=== PATIENT | male | born 1945 | race Caucasian/White ===

== ENCOUNTER 2016-11-26 16:03 | Outpatient (CLI) | payer OTHER ==
[2016-11-26 16:55] LABS: BASOPHILS # (AUTO) 0.1 K/uL (0-0.2); EOSINOPHILS # (AUTO) 0.4 K/ul (0.0-0.7); HEMATOCRIT 46.6 % (42.0-52.0); IMMATURE GRANULOCYTE % (AUTO) 0.5 % (0.0-5.0); LYMPHOCYTES # (AUTO) 1.2 K/uL (0.60-3.4); LYMPHOCYTES % (AUTO) 20.8 (10.0-50.0); MEAN CORPUSCULAR HGB CONC 34.3 (31.8-35.4); MEAN CORPUSCULAR VOLUME 87.4 fl (80.0-94.0); MONOCYTES # (AUTO) 0.7 K/uL (0.4-2.0); MONOCYTES % (AUTO) 11.1 (0-10); NEUTROPHILS # (AUTO) 3.6 K/ul (2.0-6.9); NEUTROPHILS % (AUTO) 59.6; PLATELET COUNT 236 10^3/uL (140-440); RED BLOOD COUNT 5.33 10^6/ul (4.70-6.10); WHITE BLOOD COUNT 5.97 K/ul (4.2-10.2)
[2016-11-26 17:03] LABS: BILIRUBIN,URINE Negative (NEGATIVE); KETONES,URINE Negative (NEGATIVE); LEUKOCYTE ESTERASE ,URINE Negative (NEGATIVE); NITRITE,URINE Negative (NEGATIVE); PH,URINE 5.5 (5-9); PROTEIN,URINE Negative (NEGATIVE); URINE, BLOOD Negative (NEGATIVE)
[2016-11-26 17:05] LABS: ADD URINE MICROSCOPIC NO
[2016-11-26 17:12] LABS: ALBUMIN 4.1 g/dL (3.4-5.0); ALBUMIN/GLOBULIN RATIO 1.28; ANION GAP 14.2; BILIRUBIN,TOTAL 0.7 mg/dL (0.00-1.20); BUN/CREATININE RATIO 21.9; CALCIUM 9.4 mg/dL (8.2-10.2); CHOL/HDL RATIO 4.4 (4.5-6.4); CREATININE 1.05 mg/dL (0.60-1.10); POTASSIUM 4.2 mmol/L (3.5-5.1); TOTAL PROTEIN 7.3 g/dL (5.8-8.1)
== END 2016-11-26 16:04 | disposition home or self-care (01) ==
LOC: LAB 16:03
PROVIDERS: ATTEND General Practice
DX: Z00.00 Encounter for general adult medical examination without abnormal findings (principal); E78.5 Hyperlipidemia, unspecified; I25.10 Atherosclerotic heart disease of native coronary artery without angina pectoris; I49.9 Cardiac arrhythmia, unspecified; I63.9 Cerebral infarction, unspecified; Z79.899 Other long term (current) drug therapy; Z12.5 Encounter for screening for malignant neoplasm of prostate
CPT/HCPCS: 36415; 80053; 80061; 81001; 85025

== ENCOUNTER 2017-05-02 08:34 | Outpatient (CLI) ==
[2017-05-02 08:54] LABS: BASOPHILS # (AUTO) 0.1 K/uL (0-0.2); BASOPHILS % (AUTO) 1.5 % (0.0-3.0); EOSINOPHILS # (AUTO) 0.5 K/ul (0.0-0.7); EOSINOPHILS % (AUTO) 11.7 % (0.0-7.0); HEMATOCRIT 46.4 % (42.0-52.0); HEMOGLOBIN 15.6 g/dl (14.0-18.0); IMMATURE GRANULOCYTE % (AUTO) 0.4 % (0.0-5.0); LYMPHOCYTES # (AUTO) 1.1 K/uL (0.60-3.4); LYMPHOCYTES % (AUTO) 24.5 (10.0-50.0); MEAN CORPUSCULAR HEMOGLOBIN 29.5 pg (27.0-31.0); MEAN CORPUSCULAR HGB CONC 33.6 (31.8-35.4); MEAN CORPUSCULAR VOLUME 87.7 fl (80.0-94.0); MONOCYTES # (AUTO) 0.5 K/uL (0.4-2.0); MONOCYTES % (AUTO) 11.5 (0-10); NEUTROPHILS # (AUTO) 2.3 K/ul (2.0-6.9); NEUTROPHILS % (AUTO) 50.4; PLATELET COUNT 199 10^3/uL (140-440); RED BLOOD COUNT 5.29 10^6/ul (4.70-6.10); WHITE BLOOD COUNT 4.53 K/ul (4.2-10.2)
[2017-05-02 09:32] LABS: ALBUMIN 3.8 g/dL (3.4-5.0); ALBUMIN/GLOBULIN RATIO 1.27; ANION GAP 12.1; BILIRUBIN,TOTAL 0.7 mg/dL (0.00-1.20); BUN/CREATININE RATIO 16.03; CALCIUM 9.1 mg/dL (8.2-10.2); CREATININE 1.06 mg/dL (0.60-1.10); POTASSIUM 4.1 mmol/L (3.5-5.1); TOTAL PROTEIN 6.8 g/dL (5.8-8.1)
== END 2017-05-02 08:35 | disposition home or self-care (01) ==
LOC: LAB 08:34
PROVIDERS: ATTEND Specialist
DX: Z01.810 Encounter for preprocedural cardiovascular examination (principal); I42.9 Cardiomyopathy, unspecified; Z79.899 Other long term (current) drug therapy
CPT/HCPCS: 36415; 80053; 85025

== ENCOUNTER 2017-08-01 16:30 | Outpatient (CLI) | END 2017-08-01 16:31 | disposition home or self-care (01) | LOC: FCC-LAB 16:30 | PROVIDERS: ATTEND General Practice | DX: R05 Cough (principal) | CPT/HCPCS: 87804 ==

== ENCOUNTER 2017-11-12 10:54 | Outpatient (CLI) | payer OTHER | END 2017-11-12 10:55 | disposition home or self-care (01) | LOC: FCC-LAB 10:54 | PROVIDERS: ATTEND General Practice | DX: I49.9 Cardiac arrhythmia, unspecified (principal); I25.10 Atherosclerotic heart disease of native coronary artery without angina pectoris; E78.5 Hyperlipidemia, unspecified; Z79.899 Other long term (current) drug therapy | CPT/HCPCS: 36415; 80053; 80061; 85025 ==

== ENCOUNTER 2017-11-13 10:21 | Outpatient (CLI) | payer OTHER | END 2017-11-13 10:22 | disposition home or self-care (01) | LOC: FCC-LAB 10:21 | PROVIDERS: ATTEND General Practice | DX: I49.9 Cardiac arrhythmia, unspecified (principal); I25.10 Atherosclerotic heart disease of native coronary artery without angina pectoris; E78.5 Hyperlipidemia, unspecified; Z79.899 Other long term (current) drug therapy | CPT/HCPCS: 81001 ==

== ENCOUNTER 2018-03-30 10:22 | Outpatient (CLI) | payer OTHER | END 2018-03-30 10:23 | disposition home or self-care (01) | LOC: RHC-LAB 10:22 | PROVIDERS: ATTEND General Practice | DX: I25.10 Atherosclerotic heart disease of native coronary artery without angina pectoris (principal); E78.5 Hyperlipidemia, unspecified; I49.9 Cardiac arrhythmia, unspecified; Z79.899 Other long term (current) drug therapy | CPT/HCPCS: 36415; 80053; 80061; 81001; 85025 ==

== ENCOUNTER 2018-04-02 15:28 | Outpatient (CLI) | payer OTHER | END 2018-04-02 15:29 | disposition home or self-care (01) | LOC: RHC-LAB 15:28 | PROVIDERS: ATTEND General Practice | DX: I25.10 Atherosclerotic heart disease of native coronary artery without angina pectoris (principal); E78.5 Hyperlipidemia, unspecified; I49.9 Cardiac arrhythmia, unspecified; Z79.899 Other long term (current) drug therapy | CPT/HCPCS: 81001 ==

== ENCOUNTER 2018-06-26 10:06 | Outpatient (CLI) | END 2018-06-26 10:07 | disposition home or self-care (01) | LOC: LAB 10:06 | PROVIDERS: ATTEND Specialist | DX: Z79.899 Other long term (current) drug therapy (principal) | CPT/HCPCS: 36415; 80048 ==

== ENCOUNTER 2018-08-28 11:35 | Emergency (ER) ==
[2018-08-28 11:49] VITALS: BP 122/87; TEMP 98.2
[2018-08-28 12:24] VITALS: BMI 33.4
--- NOTE | 2018-08-28 12:33 | ED.PDOC ---
General ED Provider: Dr. 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 Time Seen by Physician: 11:50 Mode of Arrival: Wheelchair Information Source: Patient, Family Exam Limitations: No limitations [facility] Nursing and Triage Documentation Reviewed and Agree: Yes Does patient meet sepsis criteria?: No System Inflammatory Response Syndrome: Not Applicable Sepsis Protocol: For patient's 13 years and over: Temp is 96.8 and below OR 101 and greater Pulse >90 BPM Resp >20/minute Acutely Altered Mental Status Are patient's symptoms suggestive of a new infection, such as: -Pneumonia -Skin, Soft Tissue -Endocarditis -UTI -Bone, Joint Infection -Implantable Device -Acute Abdominal Infection -Wound Infection -Meningitis -Blood Stream Catheter Infection -Unknown Cardiovascular Complaint Exam - Chest Pain Complaint/Exam Duration: 1-2 days Symptoms Are: Still present Timing: Constant Length of Chest Pain Episodes: no chest pain Aggravating: Reports: None Alleviating: Reports: None Associated Signs and Symptoms: Reports: Dizziness Related History: Reports: Similar episode History of Healthcare-Acquired Pneumonia: Reports: No AMI/ACS Risk Factors: Reports: Sedentary, Family history Pulmonary Embolism Risk Factors: Reports: None Prior Care for this Complaint: No Recent Stress Test: No Recent Echo/LV Function: No JVD Present: No Subcutaneous Emphysema Present: No Diminshed Breath Sounds: No Bilateral Pulses Present: Yes Unequal Pulses Noted: No Care and Dx Studies Discussed With: Family Quality Indicator For Non-Traumatic Chest Pain/Syncope: EKG Performed Review of Systems - Review Of Systems Constitutional: Reports: No symptoms All Other Systems: Reviewed and Negative Past Medical History - Past Medical History Previously Healthy: Yes Endocrine: Reports: None Cardiovascular: Reports: None Respiratory: Reports: None Hematological: Reports: None Gastrointestinal: Reports: None Genitourinary: Reports: None Neuro/Psych: Reports: None Musculoskeletal: Reports: None Cancer: Reports: None - Surgical History General Surgical History: Reports: None - Family History Family History: Reports: None - Social History Smoking Status: Never smoker Hx Substance Use: No Alcohol Screening: None - Immunizations Tetanus Shot up to Date: Yes Physical Exam - Physical Exam Appearance: Well-appearing Ill-appearing: None Pain Distress: None Eyes: PETTY ENT: Ears normal Neck: Supple Respiratory: Airway patent Cardiovascular: RRR GI/: Soft Musculoskeletal: Normal strength Skin: Warm Neurological: Sensation intact Critical Care Note - Critical Care Note Total Time (mins): 0 Course - Course Hematology/Chemistry: 08/28/18 13:20 Orders, Labs, Meds: Lab Review 08/28/18 13:20 WBC 5.60 RBC 5.02 Hgb 14.9 Hct 44.3 MCV 88.2 MCH 29.7 MCHC 33.6 RDW Coeff of Vitor 13.6 Plt Count 195 Immature Gran % (Auto) 0.2 Neut % (Auto) 49.3 Lymph % (Auto) 25.4 [place] % (Auto) 12.9 H Eos % (Auto) 11.1 H Baso % (Auto) 1.1 Immature Gran # (Auto) 0.0 Neut # (Auto) 2.8 Lymph # (Auto) 1.4 [place] # (Auto) 0.7 Eos # (Auto) 0.6 Baso # (Auto) 0.1 Orders Category Date Time Status CBC W/ AUTO DIFF Stat LAB 08/28/18 13:20 Completed COMPREHENSIVE METABOLIC PANEL Stat LAB 08/28/18 13:[address] HEAD W/O CONTRAST Stat RADS 08/28/18 12:45 Completed LUMBAR SPINE, MIN 4 VIEWS Stat RADS 08/28/18 12:51 Completed Vital Signs: Temp Pulse Resp BP Pulse Ox 08/28/18 11:41 98.2 F 79 16 122/87 94 L SHAYE Risk Score SHAYE Risk Score: Risk Score Odds of by 30D 0 0.1 (0.1-0.2) 1 0.3 (0.2-0.3) 2 0.4 (0.3-0.5) 3 0.7 (0.6-0.9) 4 1.2 (1.0-1.5) 5 2.2 (1.9-2.6) 6 3.0 (2.5-3.6) 7 4.8 (3.8-6.1) Departure - Departure Time of Disposition: 14:05 Disposition: HOME SELF-CARE Discharge Problem: Lumbar and sacral arthritis Instructions: Low Back Strain (ED), Lumbar Radiculopathy (ED) Condition: Good Pt referred to PMD for follow-up: Yes (follow with vascular US r lower extr prn) IPMP verified?: No Allergies/Adverse Reactions: Allergies No Known Allergies Allergy (Unverified 08/28/18 11:37) Home Medications: Ambulatory Orders Aspirin [Aspir 81] 81 mg PO DAILY 02/07/15 Carvedilol [Coreg] 12.5 mg PO BID 02/07/15 Losartan Potassium [Cozaar] 25 mg PO DAILY 08/28/18 Disposition Discussed With: Patient, Family
--- NOTE | 2018-08-28 13:19 | DI ---
EXAM: Five views of the lumbar spine. History: Leg numbness. Findings: Bilateral hip arthroplasty hardware. No acute fracture or subluxation. Severe disc space narrowing at L4-L5 and L5-S1 with endplate sclerosis and osteophyte formation. Moderate disc space narrowing at L3-L4. Moderate to severe facet hypertrophy within the lower lumbar spine. Impression: No acute osseous abnormality of the lumbar spine. Degenerative changes
--- NOTE | 2018-08-28 13:40 | CT ---
EXAM: CT of the head without contrast History: Right leg weakness. Comparison: Head CT 03/19/2010 Technique: Multiplanar CT images through the head were obtained without the administration of IV con trast Findings: Mild mucosal thickening of the paranasal sinuses. Mastoid air cells are clear in general. No acute calvarial abnormalities. Intracranially the ventricular and cisternal spaces are normal in size, shape and configuration for a patient of this age. Stable small old lacunar infarction within the left thalamus. No dominant mas s or midline shift. No hydrocephalous. No acute intracranial hemorrhage or abnormal extraaxial flui d collections Impression: 1. No acute intracranial process. 2. Stable small old lacunar infarction within the left thalamus. 3. Mild sinus disease
== END 2018-08-28 14:17 | disposition home or self-care (01) ==
LOC: ED 11:35
DX: M47.817 Spondylosis without myelopathy or radiculopathy, lumbosacral region (principal); R20.0 Anesthesia of skin; R42 Dizziness and giddiness; Z86.73 Personal history of transient ischemic attack (TIA), and cerebral infarction without residual deficits
CPT/HCPCS: 36415; 80053; 85025; 99283

== ENCOUNTER 2018-10-13 13:38 | Outpatient (CLI) | payer OTHER | END 2018-10-13 13:39 | disposition home or self-care (01) | LOC: RHC-LAB 13:38 | PROVIDERS: ATTEND General Practice | DX: R61 Generalized hyperhidrosis (principal); E78.5 Hyperlipidemia, unspecified; I49.9 Cardiac arrhythmia, unspecified; I25.10 Atherosclerotic heart disease of native coronary artery without angina pectoris; Z79.899 Other long term (current) drug therapy | CPT/HCPCS: 36415; 80053; 80061; 81001; 84403; 84443; 85025 ==

== ENCOUNTER 2023-03-13 09:35 | Inpatient (IN) ==
--- NOTE | 2023-03-13 10:39 | ED.PDOC ---
General ED Provider: Dr. ENZO AVELAR MD Chief Complaint: Urinary Problem Stated Complaint: Patient with a history of previous CVA, pacemaker insertion, hypertension, cardiac arrhythmia and coronary disease complains of frequency and urgency, urinating small amounts of the past 24 hours. Onset of fever this morning, lethargy and weakness. Family states patient does have a chronic cough since his previous stroke. Denies chest pain, diaphoresis, palpitations. Time Seen by Provider: 03/13/23 10:28 Mode of Arrival: Wheelchair Information Source: Patient and Family Primary Care Provider: ALBERTO MASON MD Nursing and Triage Documentation Reviewed and Agree: Yes Review of Systems Review Of Systems Constitutional: Reports Chills and Fever Eyes: Reports No symptoms Ears, Nose, Mouth, Throat: Reports No symptoms Respiratory: Reports Shortness of Breath Cardiac: Reports No symptoms GI: Reports No symptoms : Reports Frequency, Incontinence, Pain and Urgency Musculoskeletal: Reports No symptoms Skin: Reports No symptoms Neurological: Reports Other (Lethargy but answers questions appropriately) Endocrine: Reports No symptoms Hematologic/Lymphatic: Reports No symptoms All Other Systems: Reviewed and Negative [facility] Medical History Hordeolum external H00.019 - Hordeolum externum unspecified eye, unspecified eyelid (ICD-10) Dyslipidemia (10/09/15) E78.5 - Hyperlipidemia, unspecified (ICD-10) [facility] use of drug (11/26/16) Z79.899 - Other shelter (current) drug therapy (ICD-10) Medicare annual wellness visit, subsequent Z00.00 - Encounter for general adult medical examination without abnormal findings (ICD-10) Preoperative clearance Z01.818 - Encounter for other preprocedural examination (ICD-10) Needs flu shot Z23 - Encounter for immunization (ICD-10) Elevated glucose R73.09 - Other abnormal glucose (ICD-10) Cough R05 - Cough (ICD-10) Influenza due to influenza virus, type B J10.1 - Influenza due to other identified influenza virus with other respiratory manifestations (ICD-10) Vitamin D deficiency E55.9 - Vitamin D deficiency, unspecified (ICD-10) Orthostatic hypotension I95.1 - Orthostatic hypotension (ICD-10) Lyme disease A69.20 - Lyme disease, unspecified (ICD-10) Family History Mother No problems noted. FATHER Rheumatoid arthritis Social History Smoking and tobacco status: Never smoker Passive smoking exposure: No Second hand smoke exposure: No Smoking risk assessment performed: No Alcohol intake: never Counseling given: No Counseling provided: none Substance use type: prescription drug Erika/[facility]: LUTHERAN Special erika needs: No Agree to transfusion: Yes Adopted: No Caregiver/support person: No Foster care: No Household members: spouse Housing: house Marital status: M Lives independently: No Number of children: 2 Number of grandchildren: 8 Financial difficulty paying for basics: not very hard service: Yes branch: [employer] shelter: No Current occupational status: retired Current occupational exposures/hazards: No Pets and animals: Yes Do you think of yourself as: straight/heterosexual Current gender identity: male Seatbelt use: always Surgical History History of cataract removal with insertion of prosthetic lens Z98.49 - Cataract extraction status, unspecified eye (ICD-10) Z96.1 - Presence of intraocular lens (ICD-10) History of musculoskeletal system surgery Z98.890 - Other specified postprocedural states (ICD-10) Implantation of cardiac pacemaker Physical Exam Physical Exam Appearance: Reports Ill-appearing Ill-appearing: Moderate Pain Distress: None Eyes: Reports PETTY, EOMI and Conjunctiva clear ENT: Reports Ears normal, Nose normal and Oropharynx normal Neck: Supple Respiratory: Reports Breath sounds clear Cardiovascular: Reports RRR, Pulses normal and Tachycardia GI/: Reports Soft, Nontender, No masses and Bowel sounds normal Musculoskeletal: Reports Normal strength, ROM intact, No edema and No calf tenderness Skin: Reports Warm and Normal color Neurological: Reports Sensation intact and Motor intact Psychiatric: Reports Affect appropriate (Patient appears lethargic but oriented.) and Mood appropriate Interpretation EKG Interpretation Time of EKG #1: 11:06 Rate: Tachy Ectopy: None Martin: NL Interpretation: Sinus tachycardia rate of 101, right bundle branch block, left intrafascicu Radiology Interpretation Radiology Interpretation By: ED Physician Radiology Results: No acute changes Exam Interpreted: CXR Xray Comments: Portable chest x-ray no acute cardiopulmonary process Critical Care Note Critical Care Note Total Critical Care Time (mins): 30 Course Course 03/13/23 10:59 03/13/23 10:59 Orders, Labs, Meds: Lab Review 03/13/23 03/13/23 03/13/23 10:59 11:01 11:56 WBC 5.70 RBC 4.72 Hgb 13.9 L Hct 42.3 MCV 89.6 MCH 29.4 MCHC 32.9 RDW Coeff of Vitor 13.6 Plt Count 162 Immature Gran % (Auto) 0.5 Neut % (Auto) 96.0 H Lymph % (Auto) 2.6 L [place] % (Auto) 0.5 Eos % (Auto) 0.0 Baso % (Auto) 0.4 Neut # (Auto) 5.5 Lymph # (Auto) 0.2 L [place] # (Auto) 0.0 L Eos # (Auto) 0.0 Baso # (Auto) 0.0 Immature Gran # (Auto) 0.0 Hypochromasia 1+ Anisocytosis 1+ PT 10.5 INR 1.01 Puncture Site Rrad Base Excess -0.6 O2 Saturation 97.0 ABG pH 7.50 H ABG pCO2 29.0 L ABG pO2 82.0 L ABG HCO3 22.6 ABG Total CO2 23.5 Alvarez Test + Hemoglobin 1.4 Oxyhemoglobin 93.9 L Carboxyhemoglobin 3.1 H Total Hemoglobin 14.8 O2 Delivery Device Cannula Oxygen Liter Flow 2.00 FiO2 % 28.0 Sodium 136.8 Potassium 3.93 Chloride 106.5 Carbon Dioxide 22.2 Anion Gap 12.03 BUN 24.7 H Creatinine 1.12 H Estimated GFR (MDRD) 63.00 BUN/Creatinine Ratio 22.05 Glucose 110.7 H Lactic Acid 2.75 H Calcium 8.39 L Total Bilirubin 1.29 AST 25.5 ALT 20.8 Alkaline Phosphatase 60.2 Troponin I 0.044 Total Protein 6.30 Albumin 3.69 Globulin 2.61 Albumin/Globulin Ratio 1.41 D-Dimer 4177.99 H Urine Color Urine Clarity Urine pH Ur Specific [place] [employer] Urine Protein Urine Glucose (UA) Urine Ketones Urine Blood Urine Nitrite Urine Bilirubin Urine Urobilinogen Ur Leukocyte Esterase Urine Microscopic RBC Urine Microscopic WBC Ur Squamous Epith Cells Urine Bacteria Influ A Molecular Assay Negative by naat Influ B Molecular Assay Negative by naat SARS CoV-2 RNA Rapid LOGAN Negative 03/13/23 03/13/23 13:00 13:49 WBC RBC Hgb Hct MCV MCH MCHC RDW Coeff of Vitor Plt Count Immature Gran % (Auto) Neut % (Auto) Lymph % (Auto) [place] % (Auto) Eos % (Auto) Baso % (Auto) Neut # (Auto) Lymph # (Auto) [place] # (Auto) Eos # (Auto) Baso # (Auto) Immature Gran # (Auto) Hypochromasia Anisocytosis PT INR Puncture Site Base Excess O2 Saturation ABG pH ABG pCO2 ABG pO2 ABG HCO3 ABG Total CO2 Alvarez Test Hemoglobin Oxyhemoglobin Carboxyhemoglobin Total Hemoglobin O2 Delivery Device Oxygen Liter Flow FiO2 % Sodium Potassium Chloride Carbon Dioxide Anion Gap BUN Creatinine Estimated GFR (MDRD) BUN/Creatinine Ratio Glucose Lactic Acid 2.76 H Calcium Total Bilirubin AST ALT Alkaline Phosphatase Troponin I Total Protein Albumin Globulin Albumin/Globulin Ratio D-Dimer Urine Color Dark yellow Urine Clarity Clear Urine pH 5.5 Ur Specific [place] [employer] 1.020 Urine Protein 1+ H Urine Glucose (UA) Negative Urine Ketones Negative Urine Blood 2+ H Urine Nitrite Positive H Urine Bilirubin Negative Urine Urobilinogen 0.2 Ur Leukocyte Esterase Trace H Urine Microscopic RBC 10-20 Urine Microscopic WBC 5-10 Ur Squamous Epith Cells 2-5 Urine Bacteria 2+ Influ A Molecular Assay Influ B Molecular Assay SARS CoV-2 RNA Rapid LOGAN Orders Category Date Time Status ADMIT PATIENT INPATIENT .TO [facility] (MONITORED BED) ADMISSION 03/13/23 15:19 Active EKG-(ED ONLY) Stat CARDIO 03/13/23 10:39 Completed NPO REMINDER: IMAGING ONCE CARE 03/13/23 12:03 Active TELEMETRY MONITORING TELE CARE 03/13/23 15:20 Active ABG COOX Stat LAB 03/13/23 11:01 Completed BLOOD CULTURE (ED ONLY) Stat LAB 03/13/23 11:06 Received CBC W/ AUTO DIFF Stat LAB 03/13/23 10:59 Completed CMP [COMPREHENSIVE METABOLIC PANEL] Stat LAB 03/13/23 10:59 Completed D-DIMER Stat LAB 03/13/23 10:59 Completed FLU A & B MOLECULAR [FLU A/B MOLECULAR] Stat LAB 03/13/23 11:56 Completed LACTIC ACID Stat LAB 03/13/23 10:59 Completed LACTIC ACID Stat LAB 03/13/23 13:49 Completed PT WITH INR Stat LAB 03/13/23 10:59 Completed RBC MORPHOLOGY Stat LAB 03/13/23 10:59 Completed SARS COV-2 RNA RAPID LOGAN Stat LAB 03/13/23 11:56 Completed TROPONIN I Stat LAB 03/13/23 10:59 Completed URINALYSIS C & S IF INDICATED Stat LAB 03/13/23 13:00 Completed URINE CULTURE Stat LAB 03/13/23 13:00 Received Levofloxacin/D5w [Levaquin 500 mg/100 ml D5w] Meds 03/13/23 11:39 Discontinued 500 mg in 100 ml IV ONCE Sodium Chloride 0.9% [Sodium Chloride] 1,000 ml Meds 03/13/23 10:40 Discontinued IV BOLUS Sodium Chloride 0.9% [Sodium Chloride] 1,000 ml Meds 03/13/23 11:38 Discontinued IV BOLUS Sodium Chloride 0.9% [Sodium Chloride] 500 ml Meds 03/13/23 14:31 Active IV 500 mls/hr CHEST, 1V AP ONLY Stat RADS 03/13/23 10:[address] HEAD W/O CONTRAST Stat RADS 03/13/23 14:07 Completed CTA CHEST PE PROTOCOL Stat RADS 03/13/23 12:03 Completed Medications Generic Name Dose Route Start Last Admin Trade Name Freq PRN Reason Stop Dose Admin Sodium Chloride 500 mls @ 500 mls/hr 03/13/23 14:31 03/13/23 14:45 Sodium Chloride IV 03/13/23 15:30 500 mls/hr .Q1H STA Administration Discontinued Medications Generic Name Dose Route Start Last Admin Trade Name Freq PRN Reason Stop Dose Admin Sodium Chloride 1,000 mls @ 1,000 mls/hr 03/13/23 10:40 03/13/23 11:50 Sodium Chloride IV 03/13/23 11:39 1,000 mls/hr BOLUS STA Administration Sodium Chloride 1,000 mls @ 1,000 mls/hr 03/13/23 11:38 03/13/23 11:49 Sodium Chloride IV 03/13/23 12:37 1,000 mls/hr BOLUS STA Administration Levofloxacin/Dextrose 500 mg in 100 mls @ 100 mls/hr 03/13/23 11:39 03/13/23 11:49 Levaquin 500 Mg/100 Ml D5w IV 03/13/23 12:38 100 mls/hr ONCE ONE Administration Vital Signs: Temp Pulse Resp BP Pulse Ox O2 Flow Rate 03/13/23 15:08 86 18 128/69 95 03/13/23 12:20 98.6 F 03/13/23 10:10 2 03/13/23 09:41 102.2 F H 111 H 32 H 138/88 92 L Discharge Plan Discharge Patient Disposition: ADMITTED INPATIENT Discharge Problem: Acute dehydration, Acute metabolic encephalopathy Urinary tract infection Qualifiers: Urinary tract infection type: site unspecified Hematuria presence: without hematuria Qualified Code(s): N39.0 - Urinary tract infection, site not specified Did you review [place] [employer] for ALL controlled substances?: Not Applicable ED Provider: ENZO AVELAR Physician Progress Note: History obtained from the patient and his family. states complains of passing small amount of urine frequency and urgency since last night with onset of generalized weakness and lethargy. Denies history of headache, blurred vision, chest pain, abdominal pain nausea vomiting diarrhea. Patient arrives emergency via wheelchair and does not recall coming to the emergency room. Has a history of chronic cough denies chest pain abdominal pain nausea vomiting. Initial vital signs temperature 102, pulse-111, respiration 32, saturation 90% on 2 L. patient placed on sepsis protocol administered normal saline 2 L over 2 and half hours And after 2 sets of blood cultures administered Levaquin 500 mg IV piggyback. Laboratory data reviewed CBC normal limits white blood cell count of 5700, CBC is normal. GFR 63, D-dimer is 4177, troponin 0.044 urinalysis, 2+ blood, leukocyte esterase trace, bacteria 2+,-RBCs 10-20, WBCs 5-10. Patient markedly improvement in mental status after IV hydration however he states he does not remember arriving to the emergency room in wheelchair. Portable chest x-ray shows no acute cardiopulmonary process Portable chest x-ray interpretation by myself shows no evidence of acute cardiopulmonary process EKG interpretation by myself sinus tachycardia 101 there is a right bundle branch block, left intrafascicular block noted. There is no ischemic changes noted. There is no ectopy noted. CTA of the chest with intravenous contrast shows no evidence of pulm embolism. Patient mental status much more alert and appropriate. Clinic reassessment the pulse oximetry is 99% on 2 L, pulse of 87. Respirations 22. Temperature is 99 degrees. [] Third liter initiated at a rate of 500/hour The head CT scan without intravenous contrast is consistent with an old lacunar infarct in left thalamus there is no acute hemorrhage mass effect otherwise normal head CT scan [address] Mason on-call for him and this is a 78-year-old male with a history of pacemaker previous hypertension previous stroke in the past follow-up lorazepam and Plavix (he has had some problems urinating frequency urgency small amounts of urine for the past 2 days presented with fever 1 to see was tachycardic and sepsis 2 L of fluid Differential diagnosis: 1) acute metabolic encephalopathy 2) urinary tract infection 3) dehydration
[2023-03-13] MEDS ORDERED: SODIUM CHLORIDE 1,000 ML IV STA ×2 (10:40→11:38)
[2023-03-13 11:06] LABS: ABG O2 HGB 93.9 % (95-100); BEecf -0.6 (-2.0-3.0); COHb 3.1 (0.5-1.5); HCO3 22.6 (21-28); MetHb 1.4 (0-1.5); TCO2 23.5 (19-24); tHb 14.8 g/dl (11.7-17.4)
--- NOTE | 2023-03-13 11:10 | DI ---
EXAM: CHEST ONE-VIEW AP PORTABLE UPRIGHT HISTORY: Dyspnea COMPARISON: 05/31/2020 FINDINGS: Portable view of the chest obtained. The lungs are clear. The cardiac silhouette is normal. Vascular calcifications present in the aorti c arch. Pacing device is present projecting over soft tissues of the left chest. Pleural surfaces a re unremarkable. IMPRESSION: Negative chest. No active cardiopulmonary disease
[2023-03-13 11:11] LABS: BASOPHILS % (AUTO) 0.4 % (0.0-3.0); HEMATOCRIT 42.3 % (42.0-52.0); HEMOGLOBIN 13.9 g/dl (14.0-18.0); IMMATURE GRANULOCYTE % (AUTO) 0.5 % (0.0-5.0); LYMPHOCYTES # (AUTO) 0.2 K/uL (0.60-3.4); LYMPHOCYTES % (AUTO) 2.6 (10.0-50.0); MEAN CORPUSCULAR HEMOGLOBIN 29.4 pg (27.0-31.0); MEAN CORPUSCULAR HGB CONC 32.9 (31.8-35.4); MEAN CORPUSCULAR VOLUME 89.6 fl (80.0-94.0); MONOCYTES % (AUTO) 0.5 (0-10); NEUTROPHILS # (AUTO) 5.5 K/ul (2.0-6.9); PLATELET COUNT 162 10^3/uL (140-440); RDW COEFFICIENT OF VARIATION 13.6 % (11.6-14.8); RED BLOOD COUNT 4.72 10^6/ul (4.70-6.10)
[2023-03-13 11:27] LABS: ALANINE AMINOTRANSFERASE 20.8 U/L (0-50); ALBUMIN 3.69 g/dL (3.5-5.0); ALKALINE PHOSPHATASE 60.2 U/L (56-119); ASPARTATE AMINO TRANSFERASE 25.5 U/L (17-59); BILIRUBIN,TOTAL 1.29 mg/dL (0.2-1.3); BLOOD UREA NITROGEN 24.7 mg/dL (9-20); CALCIUM 8.39 mg/dL (8.4-10.2); CARBON DIOXIDE 22.2 mmol/L (22-30.0); CHLORIDE 106.5 mmol/L (98-107); CREATININE 1.12 mg/dL (0.60-1.10); GLUCOSE 110.7 mg/dL (74-106); POTASSIUM 3.93 mmol/L (3.5-5.1); SODIUM 136.8 mmol/L (134.5-145); TOTAL PROTEIN 6.3 g/dL (6.3-8.2)
[2023-03-13 11:37] LABS: PROTHROMBIN TIME 10.5 SEC (9.3-11.0)
[2023-03-13 11:38] LABS: TROPONIN I 0.044 ng/ml (0.0000-0.120)
[2023-03-13] MEDS ORDERED: LEVAQUIN 500 MG/100 ML D5W 500 MG/100 ML BAG IV ONE (11:39)
[2023-03-13 11:41] LABS: ANISOCYTOSIS 1+ (NOT PRESENT); HYPOCHROMASIA 1+ (NOT PRESENT)
[2023-03-13 12:17] LABS: SARS COV-2 RNA RAPID NAAT NEGATIVE (NEGATIVE)
[2023-03-13 12:20] LABS: MOLECULAR FLU A NEGATIVE BY NAAT (NEGATIVE); MOLECULAR FLU B NEGATIVE BY NAAT (NEGATIVE)
--- NOTE | 2023-03-13 12:58 | CT ---
EXAM: CHEST CTA WITH CONTRAST (PULMONARY ARTERY) HISTORY: Chest pain and shortness of breath. TECHNIQUE: CTA acquisition of the chest from the thoracic inlet to the upper abdomen following IV con trast administration timed to filling of the pulmonary artery. IV Contrast: 100 mL of Omnipaque 350. 3D/MIP/VR images were utilized. CT Dose Reduction Techniques Employed: Yes. COMPARISON: 07/13/2019 FINDINGS: Pulmonary Embolism: - Diagnostic quality: Adequate. - Pulmonary Arteries: No evidence of thromboembolic disease. - Right ventricle/Left ventricle ratio: Normal. Lung Parenchyma and Airways: The central airways are patent. No suspicious mass or consolidation. No suspicious pulmonary nodule. Pleural Space: No significant pleural effusion. No pneumothorax. Mediastinum: The cardiomegaly is noted. No pericardial effusion. A left chest cardiac device is not ed. The great vessels are normal. No significant aortic aneurysm. No enlarged lymph nodes. Bones and Soft Tissues: There is no fracture or lytic lesion. Chest wall soft tissues are unremarkab le. Upper Abdomen: Colonic diverticulosis is identified, without evidence of diverticulitis. IMPRESSION: 1. Normal CT pulmonary angiogram without evidence of pulmonary artery embolism. 2. Cardiomegaly is identified without acute findings. All CT scans are performed using dose optimization techniques as appropriate to the performed exam an d include at least one of the following: Automated exposure control, adjustment of the mA and/or kV according t o size, and the use of iterative reconstruction technique.
[2023-03-13 13:08] LABS: BILIRUBIN,URINE Negative (NEGATIVE); CLARITY,URINE Clear (CLEAR); GLUCOSE, URINE (UA) Negative (NEGATIVE); KETONES,URINE Negative (NEGATIVE); LEUKOCYTE ESTERASE ,URINE Trace (NEGATIVE); NITRITE,URINE Positive (NEGATIVE); PH,URINE 5.5 (5-9); PROTEIN,URINE 1+ (NEGATIVE); URINE, BLOOD 2+ (NEGATIVE); UROBILINOGEN,URINE 0.2 (0.2)
[2023-03-13 13:11] LABS: COLOR,URINE DARK YELLOW (YELLOW)
[2023-03-13 13:13] LABS: BACTERIA,URINE 2+ (NOT PRESENT)
[2023-03-13] MEDS ORDERED: SODIUM CHLORIDE 500 ML IV STA (14:31)
--- NOTE | 2023-03-13 14:55 | CT ---
EXAMINATION: HEAD CT WITHOUT CONTRAST HISTORY: Unsteady gait and lethargy. TECHNIQUE: Noncontrast CT of the brain was performed with images acquired from skull base to vertex. 2-D coronal and sagittal reformatted images were obtained from the axial source images. Contrast Dose: None. CT Dose Reduction Techniques Performed: Yes. COMPARISON: 05/31/2020. FINDINGS: Topogram demonstrates no significant abnormality. Intraparenchymal hemorrhage: None. Parenchyma: Normal rajan-white differentiation. No mass effect or midline shift. Chronic: Decreased attenuation of the periventricular white matter consistent with microangiopathic i schemic change. Old lacunar infarct in the left thalamus. Vascular calcifications consistent with a rthrosclerosis. Extra-axial spaces and basal cisterns: Normal. Ventricles: Enlargement of the ventricles and subarachnoid spaces consistent with atrophy. Paranasal sinuses and mastoid air cells: Visualized portions of paranasal sinuses are clear. Mastoid air cells are clear. Orbits: Normal visualized portions. Sella/Skull Base: Normal. Other: Scalp and visualized soft tissues are normal. Calvarium is normal. IMPRESSION: 1. Atrophy. 2. Microangiopathic ischemic change. 3. Atherosclerosis. 4. No intracranial hemorrhage. 5. Old lacunar infarct in the left thalamus. 6. Otherwise unremarkable noncontrast CT scan of the brain. All CT scans are performed using dose optimization techniques as appropriate to the performed exam an d include at least one of the following: Automated exposure control, adjustment of the mA and/or kV according t o size, and the use of iterative reconstruction technique.
[2023-03-13] MEDS ORDERED: LACTATED RINGERS 1,000 ML IV STA (15:28)
--- NOTE | 2023-03-13 15:30 | PCM ---
Date of Service Date Seen by Provider: 03/13/23 Time Seen by Provider: 15:15 Admit Day/Time Admission Date: 03/13/23 Admission Time: 15:19 Reason for Admission Chief Complaint: ACUTE METABOLICENCPHALOPATHY,UTI,DEHYDRATION Hospital Provider Hospital Provider: Fac[facility] Cow[facility]ician Primary Care Physician: ALBERTO MASON MD History of Present Illness History of Present Illness: Patient is an 78 year old male from home with pmhx of CHF, pacemaker, hypertension, and stroke x3 who presented to the ER for fever and trouble urinating since last night. He was up multiple times trying to urinate. Continued to run fever into today. Was confused earlier as well. He couldn't remember coming to the ER. He met sepsis criteria in ER. He was given fluid boluses and levaquin. Labs revealed elevated lactic and UTI. He denies history of UTI. No flank pain or abd pain. He was initially sob as well, cxr negative. D dimer high. CTA negative. At baseline he is an otherwise healthy and very active person. Case Discussed With Case Discussed With: Patient's case was discussed with the ER Physicians, Dr. Elizabeth. [facility] Medical History Hordeolum external H00.019 - Hordeolum externum unspecified eye, unspecified eyelid (ICD-10) Dyslipidemia (10/09/15) E78.5 - Hyperlipidemia, unspecified (ICD-10) long-term use of drug (11/26/16) Z79.899 - Other terminologist (current) drug therapy (ICD-10) Medicare annual wellness visit, subsequent Z00.00 - Encounter for general adult medical examination without abnormal findings (ICD-10) Preoperative clearance Z01.818 - Encounter for other preprocedural examination (ICD-10) Needs flu shot Z23 - Encounter for immunization (ICD-10) Elevated glucose R73.09 - Other abnormal glucose (ICD-10) Cough R05 - Cough (ICD-10) Influenza due to influenza virus, type B J10.1 - Influenza due to other identified influenza virus with other respiratory manifestations (ICD-10) Vitamin D deficiency E55.9 - Vitamin D deficiency, unspecified (ICD-10) Orthostatic hypotension I95.1 - Orthostatic hypotension (ICD-10) Lyme disease A69.20 - Lyme disease, unspecified (ICD-10) Surgical History History of hip replacement Z96.649 - Presence of unspecified artificial hip joint (ICD-10) History of cataract removal with insertion of prosthetic lens Z98.49 - Cataract extraction status, unspecified eye (ICD-10) Z96.1 - Presence of intraocular lens (ICD-10) History of musculoskeletal system surgery Z98.890 - Other specified postprocedural states (ICD-10) Implantation of cardiac pacemaker Family History Mother No problems noted. FATHER Rheumatoid arthritis Social History Smoking and tobacco status: Never smoker Passive smoking exposure: No Second hand smoke exposure: No Smoking risk assessment performed: No Alcohol intake: never Counseling given: No Counseling provided: none Substance use type: prescription drug Erika/latter day: TENRIISM Special erika needs: No Agree to transfusion: Yes Adopted: No Caregiver/support person: No Foster care: No Household members: spouse Housing: house Marital status: M Lives independently: No Number of children: 2 Number of grandchildren: 8 Financial difficulty paying for basics: not very hard service: Yes branch: [employer] correction: No Current occupational status: retired Current occupational exposures/hazards: No Pets and animals: Yes Do you think of yourself as: straight/heterosexual Current gender identity: male Seatbelt use: always Allergies Allergies Allergy/AdvReac Type Severity Reaction Status Date / Time No Known Allergies Allergy Verified 03/13/23 09:39 Current Medications Home Medications clopidogrel 75 mg tablet 75 mg PO QDAY #90 tabs 10/08/21 [Rx Confirmed 03/13/23 Last Taken Unknown] metoprolol succinate 25 mg tablet,extended release 24 hr 25 mg PO QDAY #90 tabs 02/06/22 [Rx Confirmed 03/13/23 Last Taken Unknown] lorazepam 0.5 mg tablet 0.5 mg PO QDAY PRN anxiety 30 days #60 tabs 02/21/23 [Rx Confirmed 03/13/23 Last Taken 03/13/23] terbinafine HCl 250 mg tablet 250 mg PO DAILY 03/13/23 [History Confirmed 03/13/23 Last Taken Unknown] Home Acetaminophen (Acetaminophen 325 Mg Tablet) 650 mg PO Q4H PRN PRN Reason: Mild Pain Clopidogrel Bisulfate (Clopidogrel Bisulfate 75 Mg Tablet) 75 mg PO DAILY [facility] Last Admin: 03/13/23 17:08 Dose: 75 mg Enoxaparin Sodium (Enoxaparin Sodium 40 Mg/0.4 Ml Syr) 40 mg SUBCUT DAILY [facility] CEFTRIAXONE/D5W 1 GM PREMIX (Rocephin 1 Gm/50 Ml D5w) 1 gm in 50 mls @ 75 mls/hr IV DAILY [facility] Stop: 03/16/23 15:29 Last Admin: 03/13/23 16:44 Dose: 75 mls/hr Lactated Ringer's (Lactated Ringers) 1,000 mls @ 75 mls/hr IV .[id number] [facility] VANCOMYCIN/WATER FOR INJ (PEG) (Vancomycin 1.5 Gram/300 Ml Premix) 1.5 gm in 300 mls @ 200 mls/hr IV ONCE ONE Stop: 03/13/23 23:09 Last Admin: 03/13/23 22:13 Dose: 200 mls/hr Lorazepam (Lorazepam 0.5 Mg Tablet) 0.5 mg PO DAILY PRN PRN Reason: ANXIETY Last Admin: 03/13/23 20:36 Dose: 0.5 mg Metoprolol Succinate (Metoprolol Succinate 25 Mg Tab.Er.24h) 25 mg PO DAILY [facility] Last Admin: 03/13/23 17:00 Dose: Not Given Non-Formulary Medication (Terbinafine Hcl) 250 mg PO DAILY [facility] Discontinued Medications Sodium Chloride (Sodium Chloride) 1,000 mls @ 1,000 mls/hr IV BOLUS STA Stop: 03/13/23 11:39 Last Admin: 03/13/23 11:50 Dose: 1,000 mls/hr Sodium Chloride (Sodium Chloride) 1,000 mls @ 1,000 mls/hr IV BOLUS STA Stop: 03/13/23 12:37 Last Admin: 03/13/23 11:49 Dose: 1,000 mls/hr Levofloxacin/Dextrose (Levaquin 500 Mg/100 Ml D5w) 500 mg in 100 mls @ 100 mls/hr IV ONCE ONE Stop: 03/13/23 12:38 Last Admin: 03/13/23 11:49 Dose: 100 mls/hr Sodium Chloride (Sodium Chloride) 500 mls @ 500 mls/hr IV .Q1H STA Stop: 03/13/23 15:30 Last Admin: 03/13/23 14:45 Dose: 500 mls/hr Lactated Ringer's (Lactated Ringers) 1,000 mls @ 75 mls/hr IV .[id number] STA Stop: 03/14/23 04:47 Last Admin: 03/13/23 16:54 Dose: 75 mls/hr Review of Systems Constitutional: Reports Fever, Fatigue, Chills and Weakness Head: Reports Normocephalic and Atraumatic Cardiovascular: Denies Chest pain, Chest Pressure or Edema Respiratory: Reports Shortness of air; Denies Cough Gastrointestinal: Denies Nausea, Vomiting, Diarrhea, Constipation or Abdominal pain Genitourinary: Reports Dysuria and Frequency Dermatologic: Denies Rashes Neurological: Reports Weakness and Other (+confusion, improved with fluids ) Physical examination Most Recent Vital Signs: Most Recent Vital Signs Temperature 98.6 F 03/13/23 12:20 Temperature Source Oral 03/13/23 12:20 Pulse Rate 86 03/13/23 15:08 Respiratory Rate 18 03/13/23 15:08 Blood Pressure 128/69 03/13/23 15:08 O2 Sat by Pulse Oximetry 95 03/13/23 15:08 Oxygen Flow Rate 2 03/13/23 10:10 Height 6 ft 2 in 03/13/23 09:41 Weight 220 lb 03/13/23 09:41 Appearance: Positive No Apparent Distress, Alert and Oriented x3 and Ill- Appearing Skin: Positive [place], Warm and Good Turgor; Negative Rashes HEENT: Positive Normocephalic and Atraumatic Neck: Positive Supple and Non-Tender Thyroid Chest/Lungs: Positive Clear to Auscultation Bilaterally; Negative Rales, Rhonci or Wheezes Heart: Positive RRR GI/: Positive Soft, Nontender, Bowel Sounds Normal and No Distention Extremities: Negative Edema Neurological: Positive Cranial Nerves Intact, Alert and Oriented Psychiatric: Positive Oriented x4, Appropriate Mood, Appropriate Affect and Other (+was confused initially but improved with fluids/abx) Labs This Visit Labs This Visit: Labs This Visit 03/13/23 03/13/23 03/13/23 10:59 11:01 11:56 WBC 5.70 RBC 4.72 Hgb 13.9 L Hct 42.3 MCV 89.6 MCH 29.4 MCHC 32.9 RDW Coeff of Vitor 13.6 Plt Count 162 Immature Gran % (Auto) 0.5 Neut % (Auto) 96.0 H Lymph % (Auto) 2.6 L Dawes % (Auto) 0.5 Eos % (Auto) 0.0 Baso % (Auto) 0.4 Neut # (Auto) 5.5 Lymph # (Auto) 0.2 L Dawes # (Auto) 0.0 L Eos # (Auto) 0.0 Baso # (Auto) 0.0 Immature Gran # (Auto) 0.0 Hypochromasia 1+ Anisocytosis 1+ PT 10.5 INR 1.01 Puncture Site Rrad Base Excess -0.6 O2 Saturation 97.0 ABG pH 7.50 H ABG pCO2 29.0 L ABG pO2 82.0 L ABG HCO3 22.6 ABG Total CO2 23.5 Alvarez Test + Hemoglobin 1.4 Oxyhemoglobin 93.9 L Carboxyhemoglobin 3.1 H Total Hemoglobin 14.8 O2 Delivery Device Cannula Oxygen Liter Flow 2.00 FiO2 % 28.0 Sodium 136.8 Potassium 3.93 Chloride 106.5 Carbon Dioxide 22.2 Anion Gap 12.03 BUN 24.7 H Creatinine 1.12 H Estimated GFR (MDRD) 63.00 BUN/Creatinine Ratio 22.05 Glucose 110.7 H Lactic Acid 2.75 H Calcium 8.39 L Total Bilirubin 1.29 AST 25.5 ALT 20.8 Alkaline Phosphatase 60.2 Troponin I 0.044 Total Protein 6.30 Albumin 3.69 Globulin 2.61 Albumin/Globulin Ratio 1.41 D-Dimer 4177.99 H Urine Color Urine Clarity Urine pH Ur Specific [place] Urine Protein Urine Glucose (UA) Urine Ketones Urine Blood Urine Nitrite Urine Bilirubin Urine Urobilinogen Ur Leukocyte Esterase Urine Microscopic RBC Urine Microscopic WBC Ur Squamous Epith Cells Urine Bacteria Influ A Molecular Assay Negative by naat Influ B Molecular Assay Negative by naat SARS CoV-2 RNA Rapid LOGAN Negative 03/13/23 03/13/23 13:00 13:49 WBC RBC Hgb Hct MCV MCH MCHC RDW Coeff of Vitor Plt Count Immature Gran % (Auto) Neut % (Auto) Lymph % (Auto) Dawes % (Auto) Eos % (Auto) Baso % (Auto) Neut # (Auto) Lymph # (Auto) Dawes # (Auto) Eos # (Auto) Baso # (Auto) Immature Gran # (Auto) Hypochromasia Anisocytosis PT INR Puncture Site Base Excess O2 Saturation ABG pH ABG pCO2 ABG pO2 ABG HCO3 ABG Total CO2 Alvarez Test Hemoglobin Oxyhemoglobin Carboxyhemoglobin Total Hemoglobin O2 Delivery Device Oxygen Liter Flow FiO2 % Sodium Potassium Chloride Carbon Dioxide Anion Gap BUN Creatinine Estimated GFR (MDRD) BUN/Creatinine Ratio Glucose Lactic Acid 2.76 H Calcium Total Bilirubin AST ALT Alkaline Phosphatase Troponin I Total Protein Albumin Globulin Albumin/Globulin Ratio D-Dimer Urine Color Dark yellow Urine Clarity Clear Urine pH 5.5 Ur Specific [place] 1.020 Urine Protein 1+ H Urine Glucose (UA) Negative Urine Ketones Negative Urine Blood 2+ H Urine Nitrite Positive H Urine Bilirubin Negative Urine Urobilinogen 0.2 Ur Leukocyte Esterase Trace H Urine Microscopic RBC 10-20 Urine Microscopic WBC 5-10 Ur Squamous Epith Cells 2-5 Urine Bacteria 2+ Influ A Molecular Assay Influ B Molecular Assay SARS CoV-2 RNA Rapid LOGAN Imaging Imaging: EXAM: CHEST CTA WITH CONTRAST (PULMONARY ARTERY HISTORY: Chest pain and shortness of breath. TECHNIQUE: CTA acquisition of the chest from the thoracic inlet to the upper abdomen following IV contrast administration timed to filling of the pulmonary artery. IV Contrast: 100 mL of Omnipaque 350. 3D/MIP/VR images were utilized. CT Dose Reduction Techniques Employed: Yes. COMPARISON: 07/13/2019 FINDINGS: Pulmonary Embolism: - Diagnostic quality: Adequate. - Pulmonary Arteries: No evidence of thromboembolic disease. - Right ventricle/Left ventricle ratio: Normal. Lung Parenchyma and Airways: The central airways are patent. No suspicious mass or consolidation. No suspicious pulmonary nodule. Pleural Space: No significant pleural effusion. No pneumothorax. Mediastinum: The cardiomegaly is noted. No pericardial effusion. A left chest cardiac device is noted. The great vessels are normal. No significant aortic aneurysm. No enlarged lymph nodes. Bones and Soft Tissues: There is no fracture or lytic lesion. Chest wall soft tissues are unremarkable. Upper Abdomen: Colonic diverticulosis is identified, without evidence of diverticulitis. IMPRESSION: 1. Normal CT pulmonary angiogram without evidence of pulmonary artery embolism. 2. Cardiomegaly is identified without acute findings. EXAMINATION: HEAD CT WITHOUT CONTRAST HISTORY: Unsteady gait and lethargy. TECHNIQUE: Noncontrast CT of the brain was performed with images acquired from skull base to vertex. 2-D coronal and sagittal reformatted images were obtained from the axial source images. Contrast Dose: None. CT Dose Reduction Techniques Performed: Yes. COMPARISON: 05/31/2020. FINDINGS: Topogram demonstrates no significant abnormality. Intraparenchymal hemorrhage: None. Parenchyma: Normal rajan-white differentiation. No mass effect or midline shift. Chronic: Decreased attenuation of the periventricular white matter consistent with microangiopathic ischemic change. Old lacunar infarct in the left thalamus. Vascular calcifications consistent with arthrosclerosis. Extra-axial spaces and basal cisterns: Normal. Ventricles: Enlargement of the ventricles and subarachnoid spaces consistent with atrophy. Paranasal sinuses and mastoid air cells: Visualized portions of paranasal sinuses are clear. Mastoid air cells are clear. Orbits: Normal visualized portions. Sella/Skull Base: Normal. Other: Scalp and visualized soft tissues are normal. Calvarium is normal. IMPRESSION: 1. Atrophy. 2. Microangiopathic ischemic change. 3. Atherosclerosis. 4. No intracranial hemorrhage. 5. Old lacunar infarct in the left thalamus. 6. Otherwise unremarkable noncontrast CT scan of the brain. EXAM: CHEST ONE-VIEW AP PORTABLE UPRIGH HISTORY: Dyspnea COMPARISON: 05/31/2020 FINDINGS: Portable view of the chest obtained. The lungs are clear. The cardiac silhouette is normal. Vascular calcifications present in the aortic arch. Pacing device is present projecting over soft tissues of the left chest. Pleural surfaces are unremarkable. IMPRESSION: Negative chest. No active cardiopulmonary disease Review Statement Review Statement: I have independently reviewed and interpreted the labs/EKGs/imaging that were ordered by the ER provider. I have reviewed all outside records that are available currently in our EMR including imaging/notes/labs from previous visits. Plan Plan: 1. Acute metabolic encephalopathy in setting of UTI - Improving with fluids, treatment of fever, etc. Cont fluids, abx. Urine culture pending. Tylenol prn for fever. 2. UTI - Urine culture pending. Start rocephin. 3. Sepsis in setting of UTI - Pt had fever, elevated lactic, tachycardia, elevated RR upon arrival to ER. He's received 2.5L of fluid based on weight. Cont maintenance fluids. Abx. 4. Hypertension - Continue home meds 5. Hx of CVA - Continue plavix 6. CHF, unknown type - Pt reports history of CHF. Does not take any diuretics at baseline. Follows w/ [facility]. No echo on file here. Monitor fluid status closely. DVT Prophylaxis: Lovenox Time Spent: Greater than 80 minutes spent with patient, 50% of the time spent with this patient was devoted to counseling and coordination of care. [facility] minutes spent discussing advance care planning. FULL CODE Admit to: Inpatient Discussed Plan of Care with Dr. Rama Garvey Update: Lab called with positive blood cultures both bottles - gram positive cocci. Vancomycin ordered. Pharmacy to dose thereafter. Will repeat blood cultures tomorrow evening after 24 hrs of vanc. Medications Medication Orders: Medications Ordered Category Date Time Status 1 gm/50 ml IV Daily Keanu Meds 03/13/23 15:30 Ordered Ceftriaxone/D5w 1 gm Premix [Rocephin 1 gm/50 ml D5w] 1 gm in 50 ml IV DAILY Acetaminophen [Tylenol] Meds 03/13/23 15:27 Ordered 650 mg PO Q4H PRN Enoxaparin Sodium [Lovenox] Meds 03/14/23 09:00 Ordered 40 mg SUBCUT DAILY Ringers Lactated Solution [Lactated Ringers] 1,000 ml Meds 03/13/23 15:28 Ordered IV 75 mls/hr Sodium Chloride 0.9% [Sodium Chloride] 500 ml Meds 03/13/23 14:31 Active IV 500 mls/hr
[2023-03-13 16:23] VITALS: BMI 34.4
[2023-03-13] MEDS: ROCEPHIN 1 GM/50 ML D5W 1 GM/50 ML BAG IV SCH (16:44)
[2023-03-13] MEDS: TOPROL XL PO SCH (17:00)
[2023-03-13] MEDS: PLAVIX PO SCH (17:08)
[2023-03-13] MEDS: ATIVAN PO PRN (20:36)
[2023-03-13] MEDS ORDERED: VANCOMYCIN 1.5 GRAM/300 ML PREMIX 1.5 GM/300 ML BAG IV ONE (21:40)
[2023-03-14] MEDS: TYLENOL PO PRN ×2 (05:33→17:15)
[2023-03-14 06:06] LABS: ALANINE AMINOTRANSFERASE 17.9 U/L (0-50); ALBUMIN 3.02 g/dL (3.5-5.0); ALKALINE PHOSPHATASE 42.4 U/L (56-119); ASPARTATE AMINO TRANSFERASE 30.6 U/L (17-59); BILIRUBIN,TOTAL 0.84 mg/dL (0.2-1.3); BLOOD UREA NITROGEN 28.8 mg/dL (9-20); CALCIUM 7.9 mg/dL (8.4-10.2); CARBON DIOXIDE 23.3 mmol/L (22-30.0); CHLORIDE 104.5 mmol/L (98-107); CREATININE 1.12 mg/dL (0.60-1.10); GLUCOSE 111.7 mg/dL (74-106); POTASSIUM 3.91 mmol/L (3.5-5.1); SODIUM 133.2 mmol/L (134.5-145); TOTAL PROTEIN 5.49 g/dL (6.3-8.2)
[2023-03-14 06:51] LABS: HEMATOCRIT 37.2 % (42.0-52.0); HEMOGLOBIN 12.3 g/dl (14.0-18.0); MEAN CORPUSCULAR HGB CONC 33.1 (31.8-35.4); MEAN CORPUSCULAR VOLUME 90.7 fl (80.0-94.0); PLATELET COUNT 117 10^3/uL (140-440); RDW COEFFICIENT OF VARIATION 14.3 % (11.6-14.8)
[2023-03-14 06:56] LABS: ANISOCYTOSIS NOT PRESENT (NOT PRESENT); WHITE BLOOD COUNT 15.05 K/ul (4.2-10.2)
[2023-03-14] MEDS: LACTATED RINGERS 1,000 ML IV SCH ×2 (06:59→15:55)
[2023-03-14] MEDS: ROCEPHIN 1 GM/50 ML D5W 1 GM/50 ML BAG IV SCH (08:10)
[2023-03-14] MEDS: PLAVIX PO SCH (08:10)
[2023-03-14] MEDS: TOPROL XL PO SCH (08:21)
[2023-03-14] MEDS: NON-FORMULARY MEDICATION (Terbinafine Hcl 250 mg tablet) PO SCH (08:22)
[2023-03-14] MEDS ORDERED: LACTATED RINGERS 1,000 ML IV STA (08:28)
[2023-03-14] MEDS ORDERED: LACTATED RINGERS 500 ML IV STA (08:41)
[2023-03-14] MEDS ORDERED: LOVENOX SUBCUT SCH (09:00)
[2023-03-14] MEDS ORDERED: VANCOMYCIN 1 GRAM/200 ML PREMIX 1 GM/200 ML BAG IV SCH (09:00)
--- NOTE | 2023-03-14 09:31 | PCM.PROG ---
Date/Time Seen Date Seen by Provider: 03/14/23 Time Seen by Provider: 08:40 Provider Provider: FACUNDO [facility]OWART [facility]-C, [facility] Chief Complaint Chief Complaint: ACUTE METABOLICENCPHALOPATHY,UTI,DEHYDRATION Subjective Subjective: Patient sitting side of bed eating breakfast. States he feels some better today. No longer having burning with urination but still having trouble with a steady stream. No flank pain or abd pain. Hoping to get oxygen off. Last night lab called reporting gram positive cocci in two blood culture bottles. Vanc was added. Today 4/4 are predominantly gram negative rods. Vanc discontinued. Objective Appearance: Positive Well-appearing, Well-nourished, No Apparent Distress and Alert and Oriented x3 Chest/Lungs: Positive Clear to Auscultation Bilaterally; Negative Rales, Rhonci or Wheezes Heart: Positive RRR GI/: Positive Soft, Nontender, Bowel Sounds Normal and No Distention Neurological: Positive Cranial Nerves Intact, Alert, Oriented and Muscle Strength 5/5 in Upper and Lower Extremities Bilaterally Additional Findings: No edema. Vital Signs Vital Signs: Vital Signs: Last 24 Hours 03/13/23 09:41 03/13/23 10:10 03/13/23 12:20 Temperature 102.2 F H 98.6 F Temperature Source Oral Oral Pulse Rate 111 H Pulse Rate [Apical] Respiratory Rate 32 H Blood Pressure 138/88 Blood Pressure Mean Blood Pressure Right Arm Blood Pressure Location Blood Pressure Position O2 Sat by Pulse Oximetry 92 L Oxygen Delivery Method Oxygen Flow Rate 2 Height 6 ft 2 in Weight 220 lb Telemetry Type Telemetry Monitoring Telemetry Heart Rate Telemetry SPO2 EKG MD Interval EKG QRS Interval Telemetry Strip Reading 03/13/23 15:08 03/13/23 16:02 03/13/23 16:02 Temperature 98.9 F Temperature Source Oral Pulse Rate 86 87 Pulse Rate [Apical] 87 Respiratory Rate 18 20 20 Blood Pressure 128/69 Blood Pressure Mean Blood Pressure Right Arm 97/59 Blood Pressure Location Blood Pressure Position Supine O2 Sat by Pulse Oximetry 95 97 Oxygen Delivery Method Nasal Cannula Nasal Cannula Oxygen Flow Rate 2 2 Height 6 ft Weight 254 lb 6.4 oz Telemetry Type Telemetry Monitoring Telemetry Heart Rate Telemetry SPO2 EKG MD Interval EKG QRS Interval Telemetry Strip Reading 03/13/23 17:08 03/13/23 17:29 03/13/23 19:00 Temperature 98.9 F Temperature Source Oral Pulse Rate 87 Pulse Rate [Apical] Respiratory Rate 20 Blood Pressure 97/59 L Blood Pressure Mean 71 Blood Pressure Right Arm Blood Pressure Location Right Arm Blood Pressure Position Sitting O2 Sat by Pulse Oximetry 97 Oxygen Delivery Method Nasal Cannula Oxygen Flow Rate 2 Height Weight Telemetry Type Remote Telemetry Remote Telemetry Telemetry Monitoring Started Continues Telemetry Heart Rate 84 82 Telemetry SPO2 98 96 EKG MD Interval 0.18 0.13 EKG QRS Interval 0.12 H 0.07 Telemetry Strip Reading SR WITH BBB SR 03/13/23 20:00 03/13/23 21:46 03/14/23 01:00 Temperature 98.6 F Temperature Source Oral Pulse Rate 92 Pulse Rate [Apical] Respiratory Rate 19 Blood Pressure 102/59 L Blood Pressure Mean 73 Blood Pressure Right Arm Blood Pressure Location Left Arm Blood Pressure Position Supine O2 Sat by Pulse Oximetry 92 L Oxygen Delivery Method Nasal Cannula Nasal Cannula Oxygen Flow Rate 2 Height Weight Telemetry Type Remote Telemetry Telemetry Monitoring Continues Telemetry Heart Rate 73 Telemetry SPO2 99 EKG MD Interval 0.14 EKG QRS Interval 0.07 Telemetry Strip Reading SR 03/14/23 02:00 03/14/23 05:25 03/14/23 06:26 Temperature 97.3 F L 100.2 F 99.2 F Temperature Source Temporal Artery Scan Oral Oral Pulse Rate 90 75 75 Pulse Rate [Apical] Respiratory Rate 20 16 16 Blood Pressure 102/64 82/42 L 95/59 L Blood Pressure Mean 76 55 71 Blood Pressure Right Arm Blood Pressure Location Left Arm Right Arm Right Arm Blood Pressure Position Supine Supine Supine O2 Sat by Pulse Oximetry 99 95 95 Oxygen Delivery Method Nasal Cannula Nasal Cannula Nasal Cannula Oxygen Flow Rate 2 2 2 Height Weight Telemetry Type Telemetry Monitoring Telemetry Heart Rate Telemetry SPO2 EKG MD Interval EKG QRS Interval Telemetry Strip Reading 03/14/23 07:00 03/14/23 08:00 Temperature Temperature Source Pulse Rate Pulse Rate [Apical] 80 Respiratory Rate 18 Blood Pressure Blood Pressure Mean Blood Pressure Right Arm Blood Pressure Location Blood Pressure Position O2 Sat by Pulse Oximetry Oxygen Delivery Method Nasal Cannula Oxygen Flow Rate 2 Height Weight Telemetry Type Remote Telemetry Telemetry Monitoring Continues Telemetry Heart Rate 73 Telemetry SPO2 EKG MD Interval 0.20 EKG QRS Interval 0.12 H Telemetry Strip Reading SR WITH BBB Lab Results Lab Results: Lab Results: Last Hours 03/14/23 03/13/23 03/13/23 05:41 16:00 13:49 WBC 15.05 H D RBC 4.10 L Hgb 12.3 L Hct 37.2 L MCV 90.7 MCH 30.0 MCHC 33.1 RDW Coeff of Vitor 14.3 Plt Count 117 L Immature Gran % (Auto) Neut % (Auto) Lymph % (Auto) Elbert % (Auto) Eos % (Auto) Baso % (Auto) Neut # (Auto) Lymph # (Auto) [place] # (Auto) Eos # (Auto) Baso # (Auto) Immature Gran # (Auto) Neutrophils % (Manual) 71.0 Band Neutrophils % 19.0 H Lymphocytes % (Manual) 2.0 L Monocytes % (Manual) 7.0 Eosinophils % (Manual) 1.0 Hypochromasia Anisocytosis Not present PT INR Puncture Site Base Excess O2 Saturation ABG pH ABG pCO2 ABG pO2 ABG HCO3 ABG Total CO2 Alvarez Test Hemoglobin Oxyhemoglobin Carboxyhemoglobin Total Hemoglobin O2 Delivery Device Oxygen Liter Flow FiO2 % Sodium 133.2 L Potassium 3.91 Chloride 104.5 Carbon Dioxide 23.3 Anion Gap 9.31 BUN 28.8 H Creatinine 1.12 H Estimated GFR (MDRD) 63.00 BUN/Creatinine Ratio 25.71 Glucose 111.7 H Lactic Acid 2.69 H 2.76 H Calcium 7.90 L Total Bilirubin 0.84 AST 30.6 ALT 17.9 Alkaline Phosphatase 42.4 L Troponin I Total Protein 5.49 L Albumin 3.02 L Globulin 2.47 Albumin/Globulin Ratio 1.22 D-Dimer Urine Color Urine Clarity Urine pH Ur Specific [place] Urine Protein Urine Glucose (UA) Urine Ketones Urine Blood Urine Nitrite Urine Bilirubin Urine Urobilinogen Ur Leukocyte Esterase Urine Microscopic RBC Urine Microscopic WBC Ur Squamous Epith Cells Urine Bacteria Influ A Molecular Assay Influ B Molecular Assay SARS CoV-2 RNA Rapid LOGAN 03/13/23 03/13/23 03/13/23 13:00 11:56 11:01 WBC RBC Hgb Hct MCV MCH MCHC RDW Coeff of Vitor Plt Count Immature Gran % (Auto) Neut % (Auto) Lymph % (Auto) [place] % (Auto) Eos % (Auto) Baso % (Auto) Neut # (Auto) Lymph # (Auto) [place] # (Auto) Eos # (Auto) Baso # (Auto) Immature Gran # (Auto) Neutrophils % (Manual) Band Neutrophils % Lymphocytes % (Manual) Monocytes % (Manual) Eosinophils % (Manual) Hypochromasia Anisocytosis PT INR Puncture Site Rrad Base Excess -0.6 O2 Saturation 97.0 ABG pH 7.50 H ABG pCO2 29.0 L ABG pO2 82.0 L ABG HCO3 22.6 ABG Total CO2 23.5 Alvarez Test + Hemoglobin 1.4 Oxyhemoglobin 93.9 L Carboxyhemoglobin 3.1 H Total Hemoglobin 14.8 O2 Delivery Device Cannula Oxygen Liter Flow 2.00 FiO2 % 28.0 Sodium Potassium Chloride Carbon Dioxide Anion Gap BUN Creatinine Estimated GFR (MDRD) BUN/Creatinine Ratio Glucose Lactic Acid Calcium Total Bilirubin AST ALT Alkaline Phosphatase Troponin I Total Protein Albumin Globulin Albumin/Globulin Ratio D-Dimer Urine Color Dark yellow Urine Clarity Clear Urine pH 5.5 Ur Specific [place] 1.020 Urine Protein 1+ H Urine Glucose (UA) Negative Urine Ketones Negative Urine Blood 2+ H Urine Nitrite Positive H Urine Bilirubin Negative Urine Urobilinogen 0.2 Ur Leukocyte Esterase Trace H Urine Microscopic RBC 10-20 Urine Microscopic WBC 5-10 Ur Squamous Epith Cells 2-5 Urine Bacteria 2+ Influ A Molecular Assay Negative by naat Influ B Molecular Assay Negative by naat SARS CoV-2 RNA Rapid LOGAN Negative 03/13/23 10:59 WBC 5.70 RBC 4.72 Hgb 13.9 L Hct 42.3 MCV 89.6 MCH 29.4 MCHC 32.9 RDW Coeff of Vitor 13.6 Plt Count 162 Immature Gran % (Auto) 0.5 Neut % (Auto) 96.0 H Lymph % (Auto) 2.6 L [place]bert % (Auto) 0.5 Eos % (Auto) 0.0 Baso % (Auto) 0.4 Neut # (Auto) 5.5 Lymph # (Auto) 0.2 L [place] # (Auto) 0.0 L Eos # (Auto) 0.0 Baso # (Auto) 0.0 Immature Gran # (Auto) 0.0 Neutrophils % (Manual) Band Neutrophils % Lymphocytes % (Manual) Monocytes % (Manual) Eosinophils % (Manual) Hypochromasia 1+ Anisocytosis 1+ PT 10.5 INR 1.01 Puncture Site Base Excess O2 Saturation ABG pH ABG pCO2 ABG pO2 ABG HCO3 ABG Total CO2 Alvarez Test Hemoglobin Oxyhemoglobin Carboxyhemoglobin Total Hemoglobin O2 Delivery Device Oxygen Liter Flow FiO2 % Sodium 136.8 Potassium 3.93 Chloride 106.5 Carbon Dioxide 22.2 Anion Gap 12.03 BUN 24.7 H Creatinine 1.12 H Estimated GFR (MDRD) 63.00 BUN/Creatinine Ratio 22.05 Glucose 110.7 H Lactic Acid 2.75 H Calcium 8.39 L Total Bilirubin 1.29 AST 25.5 ALT 20.8 Alkaline Phosphatase 60.2 Troponin I 0.044 Total Protein 6.30 Albumin 3.69 Globulin 2.61 Albumin/Globulin Ratio 1.41 D-Dimer 4177.99 H Urine Color Urine Clarity Urine pH Ur Specific [place] Urine Protein Urine Glucose (UA) Urine Ketones Urine Blood Urine Nitrite Urine Bilirubin Urine Urobilinogen Ur Leukocyte Esterase Urine Microscopic RBC Urine Microscopic WBC Ur Squamous Epith Cells Urine Bacteria Influ A Molecular Assay Influ B Molecular Assay SARS CoV-2 RNA Rapid LOGAN Additional Comments Additional Comments: I have independently reviewed and interpreted the labs/EKGs/imaging ordered during this hospital stay. I have reviewed outside records that are available in our EMR that pertain to medical stay including imaging/notes/labs from previous visits. Active Medications Active Medications: Medications Generic Name Dose Route Start Last Admin Trade Name Freq PRN Reason Stop Dose Admin Acetaminophen 650 mg 03/13/23 15:27 03/14/23 05:33 Acetaminophen 325 Mg Tablet PO 650 mg Q4H PRN Administration Mild Pain Clopidogrel Bisulfate 75 mg 03/13/23 17:00 03/14/23 08:10 Clopidogrel Bisulfate 75 Mg Tablet PO 75 mg DAILY MARGIE Administration Enoxaparin Sodium 40 mg 03/14/23 09:00 03/14/23 08:11 Enoxaparin Sodium 40 Mg/0.4 Ml Syr SUBCUT 40 mg DAILY MARGIE Administration CEFTRIAXONE/D5W 1 GM PREMIX 1 gm in 50 mls @ 75 mls/hr 03/13/23 15:30 03/14/23 08:10 Rocephin 1 Gm/50 Ml D5w IV 03/16/23 15:29 75 mls/hr DAILY MARGIE Administration Lactated Ringer's 1,000 mls @ 75 mls/hr 03/14/23 05:30 03/14/23 06:59 Lactated Ringers IV 75 mls/hr .[id number] MARGIE Administration Lactated Ringer's 500 mls @ 500 mls/hr 03/14/23 08:41 03/14/23 09:26 Lactated Ringers IV 03/14/23 09:40 500 mls/hr BOLUS STA Administration Lorazepam 0.5 mg 03/13/23 16:53 03/13/23 20:36 Lorazepam 0.5 Mg Tablet PO 0.5 mg DAILY PRN Administration ANXIETY Metoprolol Succinate 25 mg 03/13/23 17:00 03/14/23 08:21 Metoprolol Succinate 25 Mg Tab.Er.24h PO Not Given DAILY MARGIE Non-Formulary Medication 250 mg 03/14/23 09:00 03/14/23 08:22 Terbinafine Hcl PO Not Given DAILY MARGIE Plan Plan: 1. Bacteremia in setting of UTI with gram negative rods - Stop vanc. Cont rocephin. Trend wbc count and bands. Repeat two sets of cultures tonight. Urine culture also showing gram negative rods. 2. Acute metabolic encephalopathy in setting of UTI - Resolved. Cont fluids, abx. Urine culture pending. Tylenol prn for fever. 3. UTI in setting of gram negative rods - Urine culture pending. Continue rocephin. 4. Sepsis in setting of UTI - Pt had fever, elevated lactic, tachycardia, elevated RR upon arrival to ER. He's received 2.5L of fluid based on weight. Cont maintenance fluids. Abx. 5. Hypertension - Pt actually hypotensive this morning. Hold antihypertensives. Give LR 500 ml bolus. 6. Hx of CVA - Continue plavix 7. CHF, unknown type - Pt reports history of CHF. Does not take any diuretics at baseline. Follows w/ [facility]. No echo on file here. Monitor fluid status closely. Request records from Dr. Mendez office. DVT Prophylaxis: Holding Lovenox due to low platelets today. Dispo: Pt will require at least 2 more nights due to positive blood cultures. Review Statement Review Statement: I have personally discussed and reviewed the patient's visit/currently labs/imaging/decision making with Dr. Garvey, my supervising attending. Greater that 50 minutes spent with patient, 50% of the time spent with this patient was devoted to counseling and coordination of care.
[2023-03-14] MEDS: ATIVAN PO PRN (20:44)
[2023-03-15] MEDS: LACTATED RINGERS 1,000 ML IV SCH ×2 (05:14→10:05)
[2023-03-15 06:10] LABS: BASOPHILS % (AUTO) 0.2 % (0.0-3.0); EOSINOPHILS # (AUTO) 0.2 K/ul (0.0-0.7); EOSINOPHILS % (AUTO) 1.9 % (0.0-7.0); HEMATOCRIT 38.3 % (42.0-52.0); HEMOGLOBIN 12.7 g/dl (14.0-18.0); IMMATURE GRANULOCYTE % (AUTO) 0.3 % (0.0-5.0); LYMPHOCYTES # (AUTO) 0.4 K/uL (0.60-3.4); MEAN CORPUSCULAR HEMOGLOBIN 30.2 pg (27.0-31.0); MEAN CORPUSCULAR HGB CONC 33.2 (31.8-35.4); MONOCYTES # (AUTO) 0.4 K/uL (0.4-2.0); MONOCYTES % (AUTO) 4.5 (0-10); NEUTROPHILS # (AUTO) 8.7 K/ul (2.0-6.9); NEUTROPHILS % (AUTO) 89.1 % (42.2-75.2); PLATELET COUNT 95 10^3/uL (140-440); RDW COEFFICIENT OF VARIATION 13.8 % (11.6-14.8); RED BLOOD COUNT 4.21 10^6/ul (4.70-6.10)
[2023-03-15 06:13] LABS: ALANINE AMINOTRANSFERASE 19.4 U/L (0-50); ALBUMIN 3.13 g/dL (3.5-5.0); ALKALINE PHOSPHATASE 59.3 U/L (56-119); ASPARTATE AMINO TRANSFERASE 29.2 U/L (17-59); BILIRUBIN,TOTAL 0.64 mg/dL (0.2-1.3); BLOOD UREA NITROGEN 21.9 mg/dL (9-20); CALCIUM 8.03 mg/dL (8.4-10.2); CARBON DIOXIDE 24.9 mmol/L (22-30.0); CHLORIDE 106.9 mmol/L (98-107); CREATININE 0.86 mg/dL (0.60-1.10); GLUCOSE 110.2 mg/dL (74-106); POTASSIUM 3.69 mmol/L (3.5-5.1); TOTAL PROTEIN 5.82 g/dL (6.3-8.2)
[2023-03-15] MEDS: TOPROL XL PO SCH (08:53)
[2023-03-15] MEDS: PLAVIX PO SCH (08:53)
[2023-03-15] MEDS: FLORASTOR PO SCH ×2 (08:54→20:50)
[2023-03-15] MEDS: ROCEPHIN 1 GM/50 ML D5W 1 GM/50 ML BAG IV SCH (08:54)
--- NOTE | 2023-03-15 09:54 | PCM.PROG ---
Date/Time Seen Date Seen by Provider: 03/15/23 Time Seen by Provider: 08:30 Provider Provider: FACUNDO COWART PA-C, [facility] Chief Complaint Chief Complaint: ACUTE METABOLICENCPHALOPATHY,UTI,DEHYDRATION Subjective Subjective: Patient feeling some better today but very tired. States he had diarrhea through the night. Florastor added. He's also urinating frequently. He denies dysuria though. Has been requiring 1-2L when asleep. Objective Appearance: Positive No Apparent Distress and Alert and Oriented x3 Chest/Lungs: Positive Clear to Auscultation Bilaterally; Negative Rales, Rhonci or Wheezes Heart: Positive RRR GI/: Positive Soft, Nontender, Bowel Sounds Normal and No Distention Neurological: Positive Cranial Nerves Intact, Alert and Oriented Additional Findings: No edema. Vital Signs Vital Signs: Vital Signs: Last 24 Hours 03/14/23 10:00 03/14/23 10:21 03/14/23 12:54 Temperature 97.7 F Temperature Source Oral Pulse Rate 73 Pulse Rate [Apical] Respiratory Rate 16 Blood Pressure 110/57 L Blood Pressure Mean 74 Blood Pressure Location Right Arm Blood Pressure Position Supine O2 Sat by Pulse Oximetry 95 95 Oxygen Delivery Method Nasal Cannula Nasal Cannula Oxygen Flow Rate 2 2 Telemetry Type Remote Telemetry Telemetry Monitoring Continues Telemetry Heart Rate 96 Telemetry SPO2 95 EKG [place] Interval 0.17 EKG QRS Interval 0.13 H Telemetry Strip Reading NSR with BBB 03/14/23 14:00 03/14/23 14:00 03/14/23 17:13 Temperature 98.8 F 100 F Temperature Source Oral Oral Pulse Rate 86 82 Pulse Rate [Apical] Respiratory Rate 18 24 H Blood Pressure 136/75 117/69 Blood Pressure Mean 95 85 Blood Pressure Location Right Arm Right Arm Blood Pressure Position Supine Supine O2 Sat by Pulse Oximetry 93 L 94 L 97 Oxygen Delivery Method Room Air Room Air Nasal Cannula Oxygen Flow Rate 2 Telemetry Type Telemetry Monitoring Telemetry Heart Rate Telemetry SPO2 EKG IL Interval EKG QRS Interval Telemetry Strip Reading 03/14/23 18:16 03/14/23 19:00 03/14/23 19:57 Temperature 98.7 F Temperature Source Oral Pulse Rate Pulse Rate [Apical] Respiratory Rate Blood Pressure Blood Pressure Mean Blood Pressure Location Blood Pressure Position O2 Sat by Pulse Oximetry 92 L 96 Oxygen Delivery Method Room Air Nasal Cannula Oxygen Flow Rate 2 Telemetry Type Remote Telemetry Telemetry Monitoring Continues Telemetry Heart Rate 80 Telemetry SPO2 96 EKG IL Interval 0.19 EKG QRS Interval 0.14 H Telemetry Strip Reading SR with BBB 03/14/23 20:00 03/14/23 21:39 03/15/23 01:00 Temperature 98.3 F Temperature Source Oral Pulse Rate 82 Pulse Rate [Apical] 80 Respiratory Rate 18 Blood Pressure 93/48 L Blood Pressure Mean 63 Blood Pressure Location Right Arm Blood Pressure Position Supine O2 Sat by Pulse Oximetry 94 L Oxygen Delivery Method Nasal Cannula Nasal Cannula Oxygen Flow Rate 2 2 Telemetry Type Remote Telemetry Telemetry Monitoring Continues Telemetry Heart Rate 72 Telemetry SPO2 98 EKG IL Interval 0.17 EKG QRS Interval 0.14 H Telemetry Strip Reading SR with BBB 03/15/23 01:51 03/15/23 05:13 03/15/23 05:43 Temperature 98.7 F 98.7 F Temperature Source Oral Oral Pulse Rate 84 72 Pulse Rate [Apical] Respiratory Rate 20 20 Blood Pressure 141/83 H 113/60 Blood Pressure Mean 102 77 Blood Pressure Location Right Arm Right Arm Blood Pressure Position Sitting Supine O2 Sat by Pulse Oximetry 94 L 95 Oxygen Delivery Method Nasal Cannula Nasal Cannula Oxygen Flow Rate 2 2 2 Telemetry Type Telemetry Monitoring Telemetry Heart Rate Telemetry SPO2 EKG IL Interval EKG QRS Interval Telemetry Strip Reading 03/15/23 07:00 03/15/23 09:37 Temperature Temperature Source Pulse Rate Pulse Rate [Apical] Respiratory Rate Blood Pressure Blood Pressure Mean Blood Pressure Location Blood Pressure Position O2 Sat by Pulse Oximetry Oxygen Delivery Method Nasal Cannula Oxygen Flow Rate 2 Telemetry Type Remote Telemetry Telemetry Monitoring Continues Telemetry Heart Rate 78 Telemetry SPO2 96 EKG IL Interval 0.15 EKG QRS Interval 0.12 H Telemetry Strip Reading SR w/BBB & PVCs Lab Results Lab Results: Lab Results: Last 24 Hours 03/15/23 05:50 WBC 9.80 D RBC 4.21 L Hgb 12.7 L Hct 38.3 L MCV 91.0 MCH 30.2 MCHC 33.2 RDW Coeff of Vitor 13.8 Plt Count 95 L Immature Gran % (Auto) 0.3 Neut % (Auto) 89.1 H Lymph % (Auto) 4.0 L [place] % (Auto) 4.5 Eos % (Auto) 1.9 Baso % (Auto) 0.2 Neut # (Auto) 8.7 H Lymph # (Auto) 0.4 L [place] # (Auto) 0.4 Eos # (Auto) 0.2 Baso # (Auto) 0.0 Immature Gran # (Auto) 0.0 Sodium 137.0 Potassium 3.69 Chloride 106.9 Carbon Dioxide 24.9 Anion Gap 8.89 BUN 21.9 H Creatinine 0.86 Estimated GFR (MDRD) 86.00 BUN/Creatinine Ratio 25.46 Glucose 110.2 H Calcium 8.03 L Total Bilirubin 0.64 AST 29.2 ALT 19.4 Alkaline Phosphatase 59.3 Total Protein 5.82 L Albumin 3.13 L Globulin 2.69 Albumin/Globulin Ratio 1.16 Additional Comments Additional Comments: I have independently reviewed and interpreted the labs/EKGs/imaging ordered during this hospital stay. I have reviewed outside records that are available in our EMR that pertain to medical stay including imaging/notes/labs from previous visits. Active Medications Active Medications: Medications Generic Name Dose Route Start Last Admin Trade Name Martyq PRN Reason Stop Dose Admin Acetaminophen 650 mg 03/13/23 15:27 03/14/23 17:15 Acetaminophen 325 Mg Tablet PO 650 mg Q4H PRN Administration Mild Pain Clopidogrel Bisulfate 75 mg 03/13/23 17:00 03/15/23 08:53 Clopidogrel Bisulfate 75 Mg Tablet PO 75 mg DAILY MARGIE Administration CEFTRIAXONE/D5W 1 GM PREMIX 1 gm in 50 mls @ 75 mls/hr 03/13/23 15:30 03/15/23 08:54 Rocephin 1 Gm/50 Ml D5w IV 03/16/23 15:29 75 mls/hr DAILY MARGIE Administration Lactated Ringer's 1,000 mls @ 75 mls/hr 03/14/23 05:30 03/15/23 05:14 Lactated Ringers IV 75 mls/hr .[id number] MARGIE Administration Lorazepam 0.5 mg 03/13/23 16:53 03/14/23 20:44 Lorazepam 0.5 Mg Tablet PO 0.5 mg DAILY PRN Administration ANXIETY Metoprolol Succinate 25 mg 03/13/23 17:00 03/15/23 08:53 Metoprolol Succinate 25 Mg Tab.Er.24h PO 25 mg DAILY MARGIE Administration Non-Formulary Medication 250 mg 03/14/23 09:00 03/14/23 08:22 Terbinafine Hcl PO Not Given DAILY MARGIE Saccharomyces Boulardii 250 mg 03/15/23 09:00 03/15/23 08:54 Saccharomyces Boulardii 250 Mg Capsule PO 250 mg BID MARGIE Administration Plan Plan: 1. Bacteremia due to E coli in setting of UTI with E coli - Improving. Cont rocephin. Trend wbc count. Repeat blood cultures were mistakenly drawn by lab at the wrong time, were still positive. All blood cultures and urine cultures are e coli, wesley sensitive. Since they are aligned, and patient is clinically improving, will not repeat at this point unless patient deteriorates. 2. Acute metabolic encephalopathy in setting of UTI - Resolved. Cont abx. Tylenol prn for fever. 3. UTI in setting of E coli - Continue rocephin. 4. Sepsis in setting of UTI - Resolving. Cont Abx. Stop fluids today. 5. Hypertension - BP improved. Cont home meds. 6. Hx of CVA - Continue plavix 7. Diastolic heart failure, not in exacerbation - Records obtained from Dr. An [place]as office. Last echo EF 50%, grade I diastolic dysfunction. 8. Hx of ischemic cardiomyopathy - Cont metoprolol, was unable to tolerate losartan in past due to low pressures. 9. Diarrhea - Likely due to abx. May give imodium tonight to help patient rest. 10. Hypoxia - Requiring 2L when asleep. Likely has CHERYL. Cardiology recommended sleep study a few months ago. Recommended again. Will order overnight oximetry. DVT Prophylaxis: Holding Lovenox due to low platelets. Dispo: Discharge in next 1-2 days Review Statement Review Statement: I have personally discussed and reviewed the patient's visit/currently labs/imaging/decision making with Dr. Garvey, my supervising attending. Greater that 50 minutes spent with patient, 50% of the time spent with this patient was devoted to counseling and coordination of care.
[2023-03-15] MEDS ORDERED: IMODIUM PO PRN ×2 (10:01→18:36)
[2023-03-15] MEDS: NON-FORMULARY MEDICATION (Terbinafine Hcl 250 mg tablet) PO SCH (10:08)
[2023-03-15] MEDS: ATIVAN PO PRN (20:50)
[2023-03-16 05:22] VITALS: TEMP 98.2
[2023-03-16 06:00] LABS: BASOPHILS % (AUTO) 0.5 % (0.0-3.0); EOSINOPHILS # (AUTO) 0.4 K/ul (0.0-0.7); EOSINOPHILS % (AUTO) 5.8 % (0.0-7.0); HEMATOCRIT 38.9 % (42.0-52.0); HEMOGLOBIN 12.8 g/dl (14.0-18.0); IMMATURE GRANULOCYTE % (AUTO) 0.3 % (0.0-5.0); LYMPHOCYTES # (AUTO) 0.4 K/uL (0.60-3.4); LYMPHOCYTES % (AUTO) 7.1 (10.0-50.0); MEAN CORPUSCULAR HEMOGLOBIN 29.6 pg (27.0-31.0); MEAN CORPUSCULAR HGB CONC 32.9 (31.8-35.4); MONOCYTES # (AUTO) 0.6 K/uL (0.4-2.0); NEUTROPHILS # (AUTO) 4.8 K/ul (2.0-6.9); NEUTROPHILS % (AUTO) 77.3 % (42.2-75.2); PLATELET COUNT 98 10^3/uL (140-440); RDW COEFFICIENT OF VARIATION 14.1 % (11.6-14.8); RED BLOOD COUNT 4.32 10^6/ul (4.70-6.10); WHITE BLOOD COUNT 6.22 K/ul (4.2-10.2)
[2023-03-16 06:05] LABS: ALANINE AMINOTRANSFERASE 18.9 U/L (0-50); ALBUMIN 2.96 g/dL (3.5-5.0); ALKALINE PHOSPHATASE 58.5 U/L (56-119); ASPARTATE AMINO TRANSFERASE 24.5 U/L (17-59); BILIRUBIN,TOTAL 0.59 mg/dL (0.2-1.3); CALCIUM 7.91 mg/dL (8.4-10.2); CARBON DIOXIDE 26.2 mmol/L (22-30.0); CHLORIDE 105.3 mmol/L (98-107); CREATININE 0.8 mg/dL (0.60-1.10); GLUCOSE 102.6 mg/dL (74-106); POTASSIUM 3.56 mmol/L (3.5-5.1); SODIUM 136.6 mmol/L (134.5-145); TOTAL PROTEIN 5.57 g/dL (6.3-8.2)
[2023-03-16 08:03] VITALS: BP 139/88
[2023-03-16] MEDS: ROCEPHIN 1 GM/50 ML D5W 1 GM/50 ML BAG IV SCH (08:39)
[2023-03-16] MEDS: FLORASTOR PO SCH (08:39)
[2023-03-16] MEDS: TOPROL XL PO SCH (08:40)
[2023-03-16] MEDS: PLAVIX PO SCH (08:40)
[2023-03-16] MEDS: NON-FORMULARY MEDICATION (Terbinafine Hcl 250 mg tablet) PO SCH (08:40)
--- NOTE | 2023-03-16 09:28 | DCSUM ---
Admission Date Admission Date: 03/13/23 Discharge Date Discharge Date: 03/16/23 Admission Diagnosis Admission Diagnosis: 1. Acute metabolic encephalopathy due to UTI 2. UTI 3. Sepsis Discharge Diagnosis Discharge Diagnosis: 1. Bacteremia due to E coli in setting of UTI with E coli - Improving. 2. Acute metabolic encephalopathy in setting of UTI - Resolved. 3. UTI in setting of E coli 4. Hypertension 5. Hx of CVA 6. Diastolic heart failure, not in exacerbation 7 Hx of ischemic cardiomyopathy 8. Nocturnal Hypoxia - Likely CHERYL, formal sleep study recommended Hospital Provider Hospital Provider: FACUNDO COWART PA-C, [facility] Primary Care Physician Primary Care Physician: ALBERTO MASON MD Summary of History and Physical Summary of History and Physical: Patient is an 78 year old male from home with pmhx of CHF, pacemaker, hypertension, and stroke x3 who presented to the ER for fever and trouble urina ting since last night. He was up multiple times trying to urinate. Continued to run fever into today. Was confused earlier as well. He couldn't remember coming to the ER. He met sepsis criteria in ER. He was given fluid boluses and levaquin. Labs revealed elevated lactic and UTI. He denies history of UTI. No flank pain or abd pain. He was initially sob as well, cxr negative. D dimer high. CTA negative. At baseline he is an otherwise healthy and very active person. Hospital Course Subjective: Patient was treated with rocephin and fluids. Night of admission blood cultures were positive showing gram positive organism. Vanc was added. The follow day blood cultures were predominantly gram negative rods. Vanc was discontinued. Repeat blood cultures that were ordered for a specific time were mistakenly drawn by lab at the wrong time (less than 24 hours from initial blood cultures) and were still positive for gram negative rods. All blood cultures and his urine culture grew wesley sensitive E coli. Since his cultures aligned with a gram negative organism, a clear source was found, his fever resolved, wbc count normalized, and patient was improved, blood cultures were not redraw. By 03/16 patient was feeling significant better, at his baseline. He has been ambulatory without difficulty. He had some episodes of diarrhea but this has resolved. His urinary symptoms have resolved. He is requesting discharge. He has been having hypoxia at night, suspecting CHERYL. Overnight oximetry performed. He would benefit from O2 at night until he can have a formal sleep study. No case management available on weekend. Discussed staying until tomorrow for this to be ordered through a [employer] company if insurance will approve, however, patient is adamant that he would like to be discharged. Will leave a message with CM to try and get this set up for him. Otherwise he may have to f/u with PCP. Would still recommend OP sleep study regardless. Of note, pt did have low platelets as well. Lovenox was stopped due to this. They remain on low end on discharge. Likely due to underlying infection. Repeat CBC at f/u to ensure improvement. Will discharge on Augmentin bid x7 more days to complete abx regimen. Patient agrees to plan of care. Discussed to monitor for swelling due to the amount of fluids he received and his underlying diastolic heart failure. Appearance: Pleasant, No Apparent Distress, Alert, Well-appearing and Well- nourished HEENT: MMM and Supple CVS: No Murmur Abdomen: Soft, Non-Tender and No Distention Respiratory: No Accessory Muscle Use Extremities: Other (+trace edema bilateral lower ext.) Vital Signs: Most Recent Vital Signs Temperature 98.2 F 03/16/23 05:20 Temperature Source Oral 03/16/23 05:20 Temperature Source Oral 03/13/23 12:20 Pulse Rate 74 03/16/23 08:03 Respiratory Rate 16 03/16/23 05:20 Blood Pressure 139/88 03/16/23 08:03 Blood Pressure Mean 105 03/16/23 08:03 Blood Pressure Right Arm 97/59 03/13/23 16:02 Blood Pressure Location Right Arm 03/16/23 08:03 Blood Pressure Position Sitting 03/16/23 08:03 O2 Sat by Pulse Oximetry 93 L 03/16/23 08:03 Oxygen Delivery Method Room Air 03/16/23 08:03 Oxygen Flow Rate 2 03/16/23 07:00 Height 6 ft 03/13/23 16:02 Weight 254 lb 6.4 oz 03/13/23 16:02 Telemetry Type Remote Telemetry 03/16/23 07:00 Telemetry Monitoring Continues 03/16/23 07:00 Irregular Telemetry Rate (Approximate) 70-80 BPM 03/15/23 13:00 Telemetry Heart Rate 61 03/16/23 07:00 Telemetry SPO2 94 03/16/23 07:00 EKG LA Interval 0.16 03/16/23 07:00 EKG QRS Interval 0.12 H 03/16/23 07:00 EKG QT Interval 0.40 03/16/23 01:00 Telemetry Strip Reading SR WITH BBB 03/16/23 07:00 Pulse Oximetry Type Remote Telemetry 03/16/23 07:00 Pulse Oximetry Monitoring Continues 03/16/23 07:00 Imaging: EXAM: CHEST CTA WITH CONTRAST (PULMONARY ARTERY HISTORY: Chest pain and shortness of breath. TECHNIQUE: CTA acquisition of the chest from the thoracic inlet to the upper abdomen following IV contrast administration timed to filling of the pulmonary artery. IV Contrast: 100 mL of Omnipaque 350. 3D/MIP/VR images were utilized. CT Dose Reduction Techniques Employed: Yes. COMPARISON: 07/13/2019 FINDINGS: Pulmonary Embolism: - Diagnostic quality: Adequate. - Pulmonary Arteries: No evidence of thromboembolic disease. - Right ventricle/Left ventricle ratio: Normal. Lung Parenchyma and Airways: The central airways are patent. No suspicious mass or consolidation. No suspicious pulmonary nodule. Pleural Space: No significant pleural effusion. No pneumothorax. Mediastinum: The cardiomegaly is noted. No pericardial effusion. A left chest cardiac device is noted. The great vessels are normal. No significant aortic aneurysm. No enlarged lymph nodes. Bones and Soft Tissues: There is no fracture or lytic lesion. Chest wall soft tissues are unremarkable. Upper Abdomen: Colonic diverticulosis is identified, without evidence of diverticulitis. IMPRESSION: 1. Normal CT pulmonary angiogram without evidence of pulmonary artery embolism. 2. Cardiomegaly is identified without acute findings. EXAMINATION: HEAD CT WITHOUT CONTRAST HISTORY: Unsteady gait and lethargy. TECHNIQUE: Noncontrast CT of the brain was performed with images acquired from skull base to vertex. 2-D coronal and sagittal reformatted images were obtained from the axial source images. Contrast Dose: None. CT Dose Reduction Techniques Performed: Yes. COMPARISON: 05/31/2020. FINDINGS: Topogram demonstrates no significant abnormality. Intraparenchymal hemorrhage: None. Parenchyma: Normal rajan-white differentiation. No mass effect or midline shift. Chronic: Decreased attenuation of the periventricular white matter consistent with microangiopathic ischemic change. Old lacunar infarct in the left thalamus. Vascular calcifications consistent with arthrosclerosis. Extra-axial spaces and basal cisterns: Normal. Ventricles: Enlargement of the ventricles and subarachnoid spaces consistent with atrophy. Paranasal sinuses and mastoid air cells: Visualized portions of paranasal sinuses are clear. Mastoid air cells are clear. Orbits: Normal visualized portions. Sella/Skull Base: Normal. Other: Scalp and visualized soft tissues are normal. Calvarium is normal. IMPRESSION: 1. Atrophy. 2. Microangiopathic ischemic change. 3. Atherosclerosis. 4. No intracranial hemorrhage. 5. Old lacunar infarct in the left thalamus. 6. Otherwise unremarkable noncontrast CT scan of the brain. EXAM: CHEST ONE-VIEW AP PORTABLE UPRIGH HISTORY: Dyspnea COMPARISON: 05/31/2020 FINDINGS: Portable view of the chest obtained. The lungs are clear. The cardiac silhouette is normal. Vascular calcifications present in the aortic arch. Pacing device is present projecting over soft tissues of the left chest. Pleural surfaces are unremarkable. IMPRESSION: Negative chest. No active cardiopulmonary disease Lab Results Last 24 Hours: 03/16/23 05:42 WBC 6.22 RBC 4.32 L Hgb 12.8 L Hct 38.9 L MCV 90.0 MCH 29.6 MCHC 32.9 RDW Coeff of Vitor 14.1 Plt Count 98 L Immature Gran % (Auto) 0.3 Neut % (Auto) 77.3 H Lymph % (Auto) 7.1 L [place] % (Auto) 9.0 Eos % (Auto) 5.8 Baso % (Auto) 0.5 Neut # (Auto) 4.8 Lymph # (Auto) 0.4 L [place] # (Auto) 0.6 Eos # (Auto) 0.4 Baso # (Auto) 0.0 Immature Gran # (Auto) 0.0 Sodium 136.6 Potassium 3.56 Chloride 105.3 Carbon Dioxide 26.2 Anion Gap 8.66 BUN 17.0 Creatinine 0.80 Estimated GFR (MDRD) 93.00 BUN/Creatinine Ratio 21.25 Glucose 102.6 Calcium 7.91 L Total Bilirubin 0.59 AST 24.5 ALT 18.9 Alkaline Phosphatase 58.5 Total Protein 5.57 L Albumin 2.96 L Globulin 2.61 Albumin/Globulin Ratio 1.13 Discharge Instructions Discharge Planning: Discharge Planning > [address] Rama Garvey. Discharge Medications: Medications at Discharge (Home Meds & RX) clopidogrel 75 mg tablet 75 mg PO QDAY #90 tabs 10/08/21 metoprolol succinate 25 mg tablet,extended release 24 hr 25 mg PO QDAY #90 tabs 02/06/22 lorazepam 0.5 mg tablet 0.5 mg PO QDAY PRN anxiety 30 days #60 tabs 02/21/23 terbinafine HCl 250 mg tablet 250 mg PO DAILY 03/13/23 amoxicillin 875 mg-potassium clavulanate 125 mg tablet 1 tab PO BID 7 days #14 tabs 03/16/23 Discharge Plan Discharge Discharge Orders: Discharge Patient (ONCE); Ordered 03/16/23 Ordered By: FACUNDO COWART Activity Restrictions/Additional Instructions: DISCHARGE TO HOME DX: SEPSIS, UTI DIET: PROGRESS TOLERATED ACTIVITY: TOLERATED F/U WITH PCP SCHEDULED WILL SPEAK WITH CASE MANAGEMENT ABOUT OXYGEN AT NIGHT, WILL LET YOU KNOW FINISH ANTIBIOTICS TAKE PROBIOTICS NEXT FEW WEEKS YOU HAVE A HOSPITAL FOLLOW UP APPOINTMENT WITH THE [facility] ON FridayMarch AT 10:30AM WITH THERESA HAMMONDS. SHOULD YOU HAVE ANY QUESTIONS OR NEED TO RESCHEDULE YOU CAN CONTACT THEIR OFFICE AT [phone]. Instructions: Amoxicillin/Clavulanate Potassium (By mouth) Patient Disposition: HOME SELF-CARE Prescriptions: New amoxicillin-pot clavulanate 875-125 mg tablet 1 tab PO BID 7 Days Qty: 14 0RF Rx Instructions: START 03/17/23 Continued metoprolol succinate 25 mg tablet extended release 24 hr 25 mg PO QDAY Qty: 90 1RF lorazepam 0.5 mg tablet 0.5 mg PO QDAY PRN (Reason: anxiety) 30 Days Qty: 60 5RF terbinafine HCl 250 mg tablet 250 mg PO DAILY clopidogrel 75 mg tablet 75 mg PO QDAY Qty: 90 2RF Did you review [place] [employer] for ALL controlled substances?: Not Applicable Discussed opioids are addictive and Narcan is available by prescription or from pharmacy.: No Condition: Stable
[2023-03-16] MEDS ORDERED: LASIX TAB PO ONE (09:49)
[2023-03-16 10:06] VITALS: PULSE 72; RESP 20
== END 2023-03-16 10:20 | disposition home or self-care (01) | DRG 871 ==
LOC: ED 09:35 → MEDSURG B 15:22
PROVIDERS: ADMIT Hospitalist; ATTEND Physician Assistant
DX: I10 Essential (primary) hypertension; I45.10 Unspecified right bundle-branch block; R06.02 Shortness of breath; G93.41 Metabolic encephalopathy; R35.0 Frequency of micturition; R00.0 Tachycardia, unspecified; R78.81 Bacteremia; Z86.73 Personal history of transient ischemic attack (TIA), and cerebral infarction without residual deficits; E86.0 Dehydration; I44.4 Left anterior fascicular block; Z20.822 Contact with and (suspected) exposure to COVID-19; R30.0 Dysuria; R07.9 Chest pain, unspecified; Z95.0 Presence of cardiac pacemaker; A41.51 Sepsis due to Escherichia coli [E. coli]; R50.9 Fever, unspecified; N39.0 Urinary tract infection, site not specified